=== PATIENT | male | born 1955 | race Caucasian/White ===

== ENCOUNTER → 2016-12-11 | Outpatient (CLI) | payer OTHER ==
[~2016-12-11] MED LIST: FURO1TAB62 PO; LISI-515 PO; METF1000 PO; NORV2.5T PO; ZOCO20TA PO
--- NOTE | 2016-12-11 13:51 | RADRPT ---
EXAM DATE/TIME: 12/11/2016 13:28 [facility] COMPARISON: No previous studies available for comparison. INDICATIONS : Short of breath. MEDICAL HISTORY : None. SURGICAL HISTORY : None. ENCOUNTER: Initial ACUITY: 2 weeks PAIN SCORE: 0/10 LOCATION: Bilateral chest FINDINGS: The lungs are hypoaerated. There is mild basilar airspace disease on the left. Heart and mediastinal structures are unremarkable. The right costophrenic angle appears blunted posteriorly. Displaced rib fractures are seen on the fourth, fifth and sixth ribs. There is nondisplaced fractures of the seventh and eighth ribs. CONCLUSION: Right-sided rib fractures. Poor lung aeration with basilar airspace disease on the left. Small right pleural effusion. Ru Jeffries MD on December 11, 2016 at 13:44 Board Certified Radiologist. This report was verified electronically.
--- NOTE | 2016-12-11 14:49 | RADRPT ---
EXAM DATE/TIME: 12/11/2016 12:56 [facility] COMPARISON: No previous studies available for comparison. INDICATIONS : Abdominal swelling for over a month. MEDICAL HISTORY : Hypertension. Testicular cancer. Diabetes. SURGICAL HISTORY : Left testicle removed. Abdominal lymph nodes removed. ENCOUNTER: Initial ACUITY: 1 month PAIN SCORE: 2/10 LOCATION: Abdomen. MEASUREMENTS: LIVER: 17.2 cm length COMMON DUCT: 5 mm RIGHT KIDNEY: 14.4 x 7.3 x 7.2 cm LEFT KIDNEY: 13.4 x 6.5 x 6.4 cm SPLEEN: 10.7 cm length AORTA: 2.8cm maximal FINDINGS: LIVER: A coarse heterogeneous hyperechoic texture is present throughout the liver. Nodular contour is noted. Several small cysts are identified. Moderate ascites is noted. COMMON DUCT: No intraluminal mass or stone visualized. GALLBLADDER: Gallbladder is contracted. Hyperechoic structures causing acoustic shadowing are noted in the contrac rolf gallbladder. PANCREAS: Nonvisualized RIGHT KIDNEY: No hydronephrosis, stone or mass. LEFT KIDNEY: No hydronephrosis, stone or mass. SPLEEN: No focal lesion. AORTA: Non aneurysmal. IVC: Within normal limits. CONCLUSION: Cirrhotic liver with moderate ascites. Simple hepatic cysts. Contracted gallbladder with suspected cholelithiasis. Ru Jeffries MD on December 11, 2016 at 14:29 Board Certified Radiologist. This report was verified electronically.
--- NOTE | 2016-12-11 14:50 | RADRPT ---
EXAM DATE/TIME: 12/11/2016 13:18 [facility] COMPARISON: No previous studies available for comparison. INDICATIONS : Abdominal distention. MEDICAL HISTORY : Hypertension. Left testicular cancer. Abdominal distension. SURGICAL HISTORY : Left testicle removed. Abdominal lymph nodes removed. ENCOUNTER: Initial ACUITY: 1 month PAIN SCORE: 0/10 LOCATION: Abdominal. AREA EVALUATED: Lower abdomen and pelvis. FINDINGS: Imaging of the abdomen and pelvis was performed to evaluate for ascites for possible paracentesis. Mo derate amount of ascites amenable to drainage is noted. CONCLUSION: Moderate ascites amenable to paracentesis. Ru Jeffries MD on December 11, 2016 at 14:46 Board Certified Radiologist. This report was verified electronically.
== END ==
LOC: HRAD 12:05
DX: R60.9 Edema, unspecified (principal); R41.0 Disorientation, unspecified
CPT/HCPCS: 71020; 76700; 76705

== ENCOUNTER 2016-12-13 13:11 | Emergency (ER) | payer OTHER ==
[~2016-12-13] VITALS: Ht 188 cm; Wt 139.0 kg
[2016-12-13 13:13] VITALS: BP 146/73; PULSE 107; RESP 18; TEMP 98.1; O2SAT 93
--- NOTE | 2016-12-13 13:30 | PD ---
Physical Exam Time Seen by Provider: 13:28 Narrative [address] Jose M Menon for drainage of fluid from "chest and sides." Denies chest pain. Reports SOB. Patient seen in triage. VS reviewed. Awaiting bed placement. Data Data Last Documented VS Vital Signs Date Time Temp Pulse Resp B/P Pulse Ox O2 Delivery O2 Flow Rate FiO2 12/13/16 13:13 98.1 107 18 146/73 93 Room Air [facility] Supervised Visit with TERRIE: Mona Davidson Dec 13, 2016 13:30
--- NOTE | 2016-12-13 14:35 | RADRPT ---
EXAM DATE/TIME: 12/13/2016 14:20 [facility] COMPARISON: CHEST PA & LAT, December 11, 2016, 13:28. INDICATIONS : Shortness of breath. Previous MEDICAL HISTORY : None. SURGICAL HISTORY : None. ENCOUNTER: Initial ACUITY: 2 days PAIN SCORE: 0/10 LOCATION: Bilateral chest FINDINGS: Lungs are hypoaerated but remain clear. Heart and mediastinal structures are stable. Right-sided rib fractures are again noted. CONCLUSION: No evidence of acute airspace disease, pneumothorax or significant congestion. Right-sided rib fractures. Ru Jeffries MD on December 13, 2016 at 14:31 Board Certified Radiologist. This report was verified electronically.
[2016-12-13 15:40] LABS: AUTOMATED NEUTROPHIL # 7.3 TH/MM3 (1.8-7.7); BASOPHIL % 0.2 % (0.0-2.0); EOSINOPHIL # 0.1 TH/MM3 (0-0.4); EOSINOPHIL % 1.1 % (0.0-4.0); HEMATOCRIT 49.8 % (39.0-51.0); HEMO FLAGS DIFF FINAL; LYMPH % 14.1 % (9.0-44.0); LYMPHOCYTE # 1.4 TH/MM3 (1.0-4.8); MEAN CELL VOLUME 104.2 FL (80.0-100.0); MEAN CORPUSCULAR HEMOGLOBIN 35.4 PG (27.0-34.0); MONO % 12.7 % (0.0-8.0); NEUT % 71.9 % (16.0-70.0); PLATELET COUNT 237 TH/MM3 (150-450); RED BLOOD COUNT 4.78 MIL/MM3 (4.50-5.90); RED CELL DISTRIBUTION WIDTH 13.2 % (11.6-17.2); WHITE BLOOD COUNT 10.1 TH/MM3 (4.0-11.0)
[2016-12-13 16:32] LABS: BICARBONATE 26.5 MEQ/L (21.0-32.0); POTASSIUM 4.2 MEQ/L (3.5-5.1)
--- NOTE | 2016-12-13 16:52 | PD ---
HPI Chief Complaint: Respiratory Distress Time Seen by Provider: 16:52 Travel History International Travel<30 days: No Contact w/Intl Traveler<30days: No Traveled to known affect area: No History of Present Illness HPI 61-year-old male with history of hypertension, fairly recent diagnosis of cirrhosis with associated ascites, presents to emergency department for a paracentesis. Patient states that on the he had an ultrasound that showed "fluid that needs to be drained." His attending physician Dr. Menon sent him to the emergency department for this. Patient states over the last month he has noticed swelling in his lower extremities as well as increasing girth of his abdomen and shortness of breath. He states he had been off of his antihypertensive for several months because he did not have insurance. He went to his attending and was restarted on these as well as Lasix. Patient states he has lost 5 pounds since starting the Lasix. Reports no worsening in his shortness of breath. Denies any fever or chills. No significant chest pain or tightness. Patient has no other symptoms to report. [facility] Past Medical History Diabetes: Yes Patient Takes Glucophage: Yes Hypertension: Yes Past Surgical History Other Surgery: Yes (one testicle removed) Social History Alcohol Use: Yes (quit alcohol) Tobacco Use: No Substance Use: No Allergies-Medications (Allergen,Severity, Reaction): Coded Allergies: No Known Allergies (Unverified , 12/13/16) Reported Meds & Prescriptions Reported Meds & Active Scripts Active Reported Zocor (Simvastatin) 20 Mg Tab 20 Mg PO DAILY Metformin (Metformin HCl) 1,000 Mg Tab 1,000 Mg PO BIDPC With meals Norvasc (Amlodipine Besylate) 2.5 Mg Tab 2.5 Mg PO DAILY Lasix (Furosemide) 20 Mg Tab 20 Mg PO DAILY Lisinopril 20 Mg Tab 20 Mg PO DAILY Review of Systems Except as stated in HPI: all other systems reviewed are Neg Physical Exam Narrative GENERAL: Well-nourished male patient, lying on the stretcher, in no acute distress SKIN: Focused skin assessment warm/dry. HEAD: Atraumatic. Normocephalic. EYES: Pupils equal and round. No scleral icterus. No injection or drainage. ENT: No nasal bleeding or discharge. Mucous membranes pink and moist. NECK: Trachea midline. No JVD. CARDIOVASCULAR: Tachycardic rate and rhythm. RESPIRATORY: No accessory muscle use. Diminished. Breath sounds equal bilaterally. GASTROINTESTINAL: Abdomen soft, distended. Nontender.. MUSCULOSKELETAL: No obvious deformities. No clubbing. No cyanosis. 2+ lower extremity edema that is pitting. Patient's abdominal wall also has pitting edema. NEUROLOGICAL: Awake and alert. No obvious cranial nerve deficits. Motor grossly within normal limits. Normal speech. PSYCHIATRIC: Appropriate mood and affect; insight and judgment normal. Data Data Last Documented VS Vital Signs Date Time Temp Pulse Resp B/P Pulse Ox O2 Delivery O2 Flow Rate FiO2 12/13/16 19:22 99 18 134/84 93 Room Air 12/13/16 13:13 98.1 Orders Complete Blood Count With Diff (12/13/16 13:59) Basic Metabolic Panel (Bmp) (12/13/16 13:59) Chest, Single Ap (12/13/16 13:59) Iv Access Insert/Monitor (12/13/16 13:59) Ecg Monitoring (12/13/16 13:59) Oxygen Administration (12/13/16 13:59) Oximetry (12/13/16 13:59) Hepatic Functional Panel (12/13/16 17:10) Coag Profile (12/13/16 17:14) Ct Abd/Pel W Iv Contrast(Rout) (12/13/16 ) Iohexol 350 Inj (Omnipaque 350 Inj) (12/13/16 18:23) Labs Laboratory Tests Test 12/13/16 12/13/16 15:00 17:25 White Blood Count 10.1 TH/MM3 Red Blood Count 4.78 MIL/MM3 Hemoglobin 16.9 GM/DL Hematocrit 49.8 % Mean Corpuscular Volume 104.2 FL Mean Corpuscular Hemoglobin 35.4 PG Mean Corpuscular Hemoglobin 34.0 % Concent Red Cell Distribution Width 13.2 % Platelet Count 237 TH/MM3 Mean Platelet Volume 8.1 FL Neutrophils (%) (Auto) 71.9 % Lymphocytes (%) (Auto) 14.1 % Monocytes (%) (Auto) 12.7 % Eosinophils (%) (Auto) 1.1 % Basophils (%) (Auto) 0.2 % Neutrophils # (Auto) 7.3 TH/MM3 Lymphocytes # (Auto) 1.4 TH/MM3 Monocytes # (Auto) 1.3 TH/MM3 Eosinophils # (Auto) 0.1 TH/MM3 Basophils # (Auto) 0.0 TH/MM3 CBC Comment DIFF FINAL Differential Comment Sodium Level 133 MEQ/L Potassium Level 4.2 MEQ/L Chloride Level 96 MEQ/L Carbon Dioxide Level 26.5 MEQ/L Anion Gap 11 MEQ/L Blood Urea Nitrogen 38 MG/DL Creatinine 1.25 MG/DL Estimat Glomerular Filtration 58 ML/MIN Rate Random Glucose 141 MG/DL Calcium Level 9.2 MG/DL Total Bilirubin 1.8 MG/DL Direct Bilirubin 0.9 MG/DL Indirect Bilirubin 0.9 MG/DL Aspartate Amino Transf 81 U/L (AST/SGOT) Alanine Aminotransferase 75 U/L (ALT/SGPT) Alkaline Phosphatase 201 U/L Total Protein 7.7 GM/DL Albumin 2.6 GM/DL Prothrombin Time 14.5 SEC Prothromb Time International 1.3 RATIO Ratio Activated Partial 28.7 SEC Thromboplast Time MDM Medical Decision Making Medical Screen Exam Complete: Yes Emergency Medical Condition: Yes Medical Record Reviewed: Yes Differential Diagnosis Ascites versus effusion versus liver failure versus neoplasm versus electrolyte abnormality. Narrative Course 61-year-old male presents to emergency department for a paracentesis. I contacted ultrasound department and he states that he did not have an appointment for this. Patient states he was just told to come to the emergency department. Patient does have 2+ pitting edema on his lower extremities with weeping as well as pitting of his abdominal wall. He does have a rotund, distended but nontender abdomen. He is mildly tachycardic and his oxygen saturation is maintained at 93% on room air. I discussed the patient with my attending physician. CT imaging of the abdomen will be ordered in addition to repeat lab work. Last Impressions Chest X-Ray 12/13/16 1359 Signed Impressions: Service Date/Time: November 14:20 - CONCLUSION: No evidence of acute airspace disease, pneumothorax or significant congestion. Right-sided rib fractures. Ru Jeffries MD Abdomen/Pelvis CT 12/13/16 0000 Signed Impressions: Service Date/Time: November 18:18 - CONCLUSION: 1. Cirrhosis of the liver. Vague focal hepatic lesion in the left hepatic lobe and further characterization with MRI of the abdomen with and without contrast recommended. A few other scattered subcentimeter liver hypodensities are most likely cysts. 2. Moderate ascites. 3. Patent portal vein. 4. No splenomegaly. 5. Trace effusions and mild atelectasis of both lung bases. 6. Previous retroperitoneal lymph node dissection. No lymphadenopathy demonstrated currently. 7. Right hydrocele fluid. 8. Small hiatal hernia. Hardik Terrazas MD ADDENDUM: There is cholelithiasis without evidence of cholecystitis or biliary obstruction. Hardik Terrazas MD Laboratory Tests Test 12/13/16 12/13/16 15:00 17:25 White Blood Count 10.1 TH/MM3 Red Blood Count 4.78 MIL/MM3 Hemoglobin 16.9 GM/DL Hematocrit 49.8 % Mean Corpuscular Volume 104.2 FL Mean Corpuscular Hemoglobin 35.4 PG Mean Corpuscular Hemoglobin 34.0 % Concent Red Cell Distribution Width 13.2 % Platelet Count 237 TH/MM3 Mean Platelet Volume 8.1 FL Neutrophils (%) (Auto) 71.9 % Lymphocytes (%) (Auto) 14.1 % Monocytes (%) (Auto) 12.7 % Eosinophils (%) (Auto) 1.1 % Basophils (%) (Auto) 0.2 % Neutrophils # (Auto) 7.3 TH/MM3 Lymphocytes # (Auto) 1.4 TH/MM3 Monocytes # (Auto) 1.3 TH/MM3 Eosinophils # (Auto) 0.1 TH/MM3 Basophils # (Auto) 0.0 TH/MM3 CBC Comment DIFF FINAL Differential Comment Sodium Level 133 MEQ/L Potassium Level 4.2 MEQ/L Chloride Level 96 MEQ/L Carbon Dioxide Level 26.5 MEQ/L Anion Gap 11 MEQ/L Blood Urea Nitrogen 38 MG/DL Creatinine 1.25 MG/DL Estimat Glomerular Filtration 58 ML/MIN Rate Random Glucose 141 MG/DL Calcium Level 9.2 MG/DL Total Bilirubin 1.8 MG/DL Direct Bilirubin 0.9 MG/DL Indirect Bilirubin 0.9 MG/DL Aspartate Amino Transf 81 U/L (AST/SGOT) Alanine Aminotransferase 75 U/L (ALT/SGPT) Alkaline Phosphatase 201 U/L Total Protein 7.7 GM/DL Albumin 2.6 GM/DL Prothrombin Time 14.5 SEC Prothromb Time International 1.3 RATIO Ratio Activated Partial 28.7 SEC Thromboplast Time I discussed the labs and imaging with my attending also reviewed them. I discussed the findings with the patient and informed him about the vague area on his liver that needed outpatient MRI evaluation. Patient has remained stable here. He states that he would like to go home. He is given outpatient order for paracentesis. He is given instructions on how to make appointment. He agrees to return immediately with any acute worsening symptoms. Diagnosis Primary Impression: Cirrhosis of liver Qualified Code: K74.60 - Cirrhosis of liver with ascites, unspecified hepatic cirrhosis type Additional Impressions: Ascites Qualified Code: R18.8 - Other ascites Liver lesion, left lobe Referrals: [employer] [employer] Primary Care Physician Patient Instructions: Ascites (ED), General Instructions Additional Instructions: Follow up with your primary care provider Outpatient MRI with and without contrast is recommended for further evaluation of a vague lesion identified on the left lobe of your liver Call the centralized scheduling number tomorrow to schedule outpt paracentesis Return to ED immediately with any acute worsening of symptoms Med/Other Pt SpecificInfo: No Change to Meds Disposition: 01 DISCHARGE HOME Condition: Stable oHllie Parra Dec 13, 2016 16:52
[2016-12-13] MEDS ORDERED: NORV2.5T PO (17:25)
[2016-12-13] MEDS ORDERED: LISI-515 PO (17:25)
[2016-12-13] MEDS ORDERED: METF1000 PO (17:25)
[2016-12-13] MEDS ORDERED: FURO1TAB62 PO (17:25)
[2016-12-13] MEDS ORDERED: ZOCO20TA PO (17:25)
[2016-12-13 18:04] LABS: APTT (PATIENT) 28.7 SEC (24.3-30.1); INTERNATIONAL NORMALIZED RATIO 1.3 RATIO; PROTHROMBIN TIME - PATIENT 14.5 SEC (9.8-11.6)
[2016-12-13] MEDS ORDERED: IOHEXOL 350 MG/ML 10 ML VIAL (for RAD DIAG) IV ONE (18:23)
--- NOTE | 2016-12-13 18:51 | RADRPT ---
EXAM DATE/TIME: 12/13/2016 18:18 This report includes an Addendum and supersedes previous reports for this exam. [facility] COMPARISON: US ABDOMEN - LOWER LIMITED, December 11, 2016, 13:18. US ABDOMEN - COMPLETE, December 11, 2016, 12:56. INDICATIONS : Abdominal distention with edema in legs. IV CONTRAST: 100 cc Omnipaque 350 (iohexol) IV ORAL CONTRAST: No oral contrast ingested. RADIATION DOSE: 26.96 CTDIvol (mGy) MEDICAL HISTORY : Hypertension. SURGICAL HISTORY : Orchiectomy ENCOUNTER: Initial ACUITY: 1 month PAIN SCALE: 0/10 LOCATION: abdomen TECHNIQUE: Volumetric scanning of the abdomen and pelvis was performed. Using automated exposure control and ad justment of the mA and/or kV according to patient size, radiation dose was kept as low as reasonably achievable to obtain optimal diagnostic quality images. FINDINGS: Shrunken nodular liver compatible cirrhosis noted. A vague hypodensity measuring about 26 mm in size is seen in the left hepatic lobe. There are a handful of subcentimeter hypodensities that are more di stinct and most likely cysts. No biliary distention. There is moderate diffuse ascites. Portal vein p atent, appears slightly distended. There is a recanalized umbilical vein and evidence of caput medusa . Normal spleen size. Pancreas, adrenal glands and kidneys are within normal limits. Numerous surgical clips are seen in the retroperitoneum, presumably previous lymph node dissection. No lymphadenopathy is demonstrated currently. Multiple small stones are seen dependently in the gallbladder. No ductal stone or ductal dilatation. No obstruction or acute inflammatory changes seen of the gastrointestinal tract. Small hiatal hernia. Partly seen is right hydrocele. Trace effusions and mild dependent atelectasis seen of both visualized lung bases. There are nonacute and substantially healed right rib fractures. I don't see an acute osseous abnormality. CONCLUSION: 1. Cirrhosis of the liver. Vague focal hepatic lesion in the left hepatic lobe and further characteri zation with MRI of the abdomen with and without contrast recommended. A few other scattered subcentim eter liver hypodensities are most likely cysts. 2. Moderate ascites. 3. Patent portal vein. 4. No splenomegaly. 5. Trace effusions and mild atelectasis of both lung bases. 6. Previous retroperitoneal lymph node dissection. No lymphadenopathy demonstrated currently. 7. Right hydrocele fluid. 8. Small hiatal hernia. Hardik Terrazas MD on December 13, 2016 at 18:44 Board Certified Radiologist. This report was verified electronically. ADDENDUM: There is cholelithiasis without evidence of cholecystitis or biliary obstruction. Hardik Terrazas MD on December 13, 2016 at 18:52 Board Certified Radiologist. This report was verified electronically.
[2016-12-13 19:02] LABS: INDIRECT BILIRUBIN 0.9 MG/DL (0.0-0.8); TOTAL BILIRUBIN ADULT 1.8 MG/DL (0.2-1.0)
[2016-12-13 19:22] VITALS: BP 134/84; PULSE 99; RESP 18; O2SAT 93
== END 2016-12-13 19:44 | disposition home or self-care (01) ==
LOC: NEPC 13:11
DX: K74.60 Unspecified cirrhosis of liver (principal); R18.8 Other ascites
CPT/HCPCS: 71010; 74177; 80048; 80076; 85025; 85610; 85730; 99285; Q9967

== ENCOUNTER 2016-12-18 11:52 | Inpatient (IN) | payer OTHER ==
[2016-12-18] VITALS (13 sets, daily range): BP systolic 68–115; BP diastolic 30–55; PULSE 67–84; RESP 22–34; TEMP 95.6–95.8; O2SAT 84–100
[~2016-12-18] VITALS: Ht 188 cm; Wt 150.0 kg
[2016-12-18] MEDS ORDERED: SODIUM CHLOR 0.9% 1000 ML INJ 1,000 ML IV SCH ×2 (12:26→14:05)
[2016-12-18] MEDS ORDERED: ROCURONIUM INJ 50 MG/5 ML VIAL ONE (12:28)
[2016-12-18] MEDS ORDERED: PROPOFOL 1000 MG/100 ML INJ 100 ML IV SCH ×2 (12:30→14:15)
[2016-12-18] MEDS ORDERED: ETOMIDATE 20 MG/10 ML VIAL IV PUSH ONE (12:30)
[2016-12-18] MEDS ORDERED: ROCURONIUM INJ 100 MG/10 ML VIAL IV ONE (12:30)
[2016-12-18] MEDS ORDERED: SODIUM CHLORIDE 0.9% FLUSH 5 ML FLUSH IV FLUSH PRN (12:30)
[2016-12-18] MEDS ORDERED: LACTULOSE SYRUP 20 GM/30 ML CUP OG-TUBE ONE (13:15)
[2016-12-18 13:18] LABS: AUTOMATED NEUTROPHIL # 19.9 TH/MM3 (1.8-7.7); BASOPHIL # 0.2 TH/MM3 (0-0.2); BASOPHIL % 0.6 % (0.0-2.0); EOSINOPHIL # 0.2 TH/MM3 (0-0.4); EOSINOPHIL % 0.6 % (0.0-4.0); HEMATOCRIT 35.4 % (39.0-51.0); LYMPH % 20.6 % (9.0-44.0); LYMPHOCYTE # 5.7 TH/MM3 (1.0-4.8); MEAN CELL VOLUME 115.3 FL (80.0-100.0); MEAN CORPUSCULAR HEMOGLOBIN 35.5 PG (27.0-34.0); MEAN CORPUSCULAR HGB CONC 30.8 % (32.0-36.0); MONO % 6.4 % (0.0-8.0); NEUT % 71.8 % (16.0-70.0); PLATELET COUNT 213 TH/MM3 (150-450); RED BLOOD COUNT 3.07 MIL/MM3 (4.50-5.90); RED CELL DISTRIBUTION WIDTH 14.4 % (11.6-17.2); WHITE BLOOD COUNT 27.7 TH/MM3 (4.0-11.0)
[2016-12-18 13:19] LABS: APTT (PATIENT) 39.6 SEC (24.3-30.1); INTERNATIONAL NORMALIZED RATIO 1.6 RATIO; PROTHROMBIN TIME - PATIENT 18.3 SEC (9.8-11.6)
[2016-12-18] MEDS ORDERED: PIPERACIL-TAZO 4.5 GM PREMIX 100 ML IV ONE (13:30)
[2016-12-18] MEDS ORDERED: NOREPINEPHRINE-DEXTROSE DRIP 250 ML IV SCH ×2 (13:30→16:00)
[2016-12-18] MEDS ORDERED: TERBUTALINE INJ 1 MG/ML AMP SQ PRN ×3 (13:30→19:30)
[2016-12-18] MEDS ORDERED: VANCOMYCIN INJ 1,000 MG in SODIUM CHLOR 0.9% 250 ML INJ 250 ML IV ONE (13:30)
[2016-12-18] MEDS ORDERED: SODIUM CHLOR 0.9% 1000 ML INJ 1,000 ML IV ONE ×3 (13:30→14:15)
--- NOTE | 2016-12-18 13:38 | PD ---
HPI Chief Complaint: Altered Mental Status Time Seen by Provider: 12:24 Travel History International Travel<30 days: No Contact w/Intl Traveler<30days: No Traveled to known affect area: No History of Present Illness HPI 61yo M with PMH of cirrhosis presents to the ED with c/o altered mental status that happened 30 minutes prior to arrival. states that he has been complaining of sob for a week. Pt arrived with pulse ox in the 70s on 100% nonrebreather and not responding. Pt was moving all extremities. Pt had eyes open but not responding to verbal stimuli or following commands. Pt was emergently intubated. Large amount of coffee ground emesis in mouth and airway as well as 500cc of coffee ground emesis returned when OG tube placed. PFSH Past Medical History High Cholesterol: Yes Cirrhosis: Yes Diabetes: Yes Patient Takes Glucophage: Yes Hypertension: Yes Triglycerides - High: Yes Past Surgical History Abdominal Surgery: Yes (lyphectomy from prostate cancer) Genitourinary Surgery: Yes Prostatectomy: Yes Other Surgery: Yes (one testicle removed) Social History Alcohol Use: Yes (quit alcohol) Tobacco Use: No Substance Use: No Allergies-Medications (Allergen,Severity, Reaction): Coded Allergies: No Known Allergies (Unverified , 12/18/16) Reported Meds & Prescriptions Reported Meds & Active Scripts Active Reported Zocor (Simvastatin) 20 Mg Tab 20 Mg PO DAILY Metformin (Metformin HCl) 1,000 Mg Tab 1,000 Mg PO BIDPC With meals Norvasc (Amlodipine Besylate) 2.5 Mg Tab 2.5 Mg PO DAILY Lasix (Furosemide) 20 Mg Tab 20 Mg PO DAILY Lisinopril 20 Mg Tab 20 Mg PO DAILY Review of Systems Except as stated in HPI: all other systems reviewed are Neg Physical Exam Narrative GEN: 61yo M in distress. SKIN: Warm and dry. HEAD: Normocephalic, atraumatic. EYES: Pupils 4mm and sluggishly reactive to light bilaterally. CV: S1, S2. Lungs: Breath sounds were equal but saturating at 70s on 100% nonrebreather. + Use of accessory muscles. Abd: Distended. Soft. Ext: Pt moving all extremities but not to command. NEURO: Nonverbal. Eyes open. Moving extremities but not to command or purposeful. Exam limited with altered mental status. Data Data Last Documented VS Vital Signs Date Time Temp Pulse Resp B/P Pulse Ox O2 Delivery O2 Flow Rate FiO2 12/18/16 12:20 100 12/18/16 12:09 84 22 92/55 86 Non-Rebreather 15 Orders Electrocardiogram (12/18/16:) Ammonia (12/18/16:) Complete Blood Count With Diff (12/18/16:) Comprehensive Metabolic Panel (12/18/16:) Creatine Kinase (Cpk) (12/18/16) Prothrombin Time / Inr (Pt) (12/18/16) Act Partial Throm Time (Ptt) (12/18/16:) Troponin I (12/18/16) Thyroid Stimulating Hormone (12/18/16) Urinalysis - C+S If Indicated (12/18/16:) Lactic Acid Sepsis Protocol (12/18/16:) Arterial Blood Gas (Abg) (12/18/16:) Blood Culture (12/18/16) Chest, Single Ap (12/18/16:) Blood Glucose (12/18/16:) Ecg Monitoring (12/18/16:) Iv Access Insert/Monitor (12/18/16:) Oximetry (12/18/16:) Sodium Chloride 0.9% Flush (Ns Flush) (12/18/16 12:30) Sodium Chlor 0.9% 1000 Ml Inj (Ns 1000 M (12/18/16:) Drug Screen, Random Urine (12/18/16:) Alcohol (Ethanol) (12/18/16:) Type And Screen (12/18/16:) Rocuronium Inj (Zemuron Inj) (12/18/16 12:30) Etomidate Inj (Amidate Inj) (12/18/16 12:30) Rocuronium Inj (Zemuron Inj) (12/18/16 12:28) Propofol 1000 Mg/100 Ml Inj (Diprivan 10 (12/18/16 12:30) ^ Infusion (12/18/16 12:29) RASS (12/18/16 12:29) Neurological Rass Scale ESME.Q2H (12/18/16 12:29) Urinary Catheter Insert/Apply (12/18/16 12:29) Moises-Gastric Tube Insert/Mon (12/18/16 12:29) Restraints Non-Violent ESME.Q3H (12/18/16 12:29) Lactulose Liq (Lactulose Liq) (12/18/16 13:15) Sodium Chlor 0.9% 1000 Ml Inj (Ns 1000 M (12/18/16 13:30) Vancomycin Inj (Vancomycin Inj) (12/18/16 13:30) Piperacil-Tazo 4.5 Gm Premix (Zosyn 4.5 (12/18/16 13:30) Norepinephrine-Dextrose Drip (Levophed-D (12/18/16 13:30) Terbutaline Inj (Brethine Inj) (12/18/16 13:30) Red Blood Cells (Rbc) (12/18/16 13:44) Blood Product Administration .UPON TRANSFUSION (12/18/16 13:44) Sodium Chlor 0.9% 250 Ml Inj (Ns 250 Ml (12/18/16 13:45) Admit To Inpatient (12/18/16 ) Code Status (12/18/16 14:05) Vital Signs (Adult) ESME.Q1H (12/18/16 14:05) Activity Bed Rest (12/18/16 14:05) House Fellow / Telemetry ESME.Q8H (12/18/16 14:05) Intake + Output ESME.Q8H (12/18/16 14:05) Urinary Catheter Management ESME.Q8H (12/18/16 14:05) Diet Npo (12/18/16 Dinner) Sodium Chlor 0.9% 1000 Ml Inj (Ns 1000 M (12/18/16 14:05) Fentanyl Inj (Fentanyl Inj) (12/18/16 14:15) Urine Culture (12/18/16 13:15) Albuterol-Ipratropium Neb (Duoneb Neb) (12/18/16 16:00) Albuterol Neb (Albuterol Neb) (12/18/16 14:15) Chlorhexidine 0.12% Liq (Peridex 0.12% L (12/18/16 20:00) Sputum Culture And Gram Stain (12/18/16 14:05) Resp Pulse Oximetry (12/18/16 ) Resp Ventilation- Volume (12/18/16 ) Arterial Blood Gas (Abg) (12/18/16 ) Consult Cm-Day 5 Ltac Eval (12/18/16 ) Scd Bilateral/Knee High ESME.BID (12/18/16 14:05) Kurt Bilateral/Knee High ESME.QSHIFT (12/18/16 14:05) ^ Initiate Protocol (12/18/16 14:05) Instruction (12/18/16 14:05) Misc Nursing Information (12/18/16 14:15) Chlorhexidine 2% Cloth (Chlorhexidine 2% (12/19/16 04:00) Chlorhexidine 2% Cloth (Chlorhexidine 2% (12/18/16 14:15) Mrsa Pcr Surveillance (12/18/16 14:05) Propofol 1000 Mg/100 Ml Inj (Diprivan 10 (12/18/16 14:15) Inpatient Certification (12/18/16 ) Sodium Bicarbonate 8.4% Inj (Sodium Bica (12/18/16 14:15) Admit Order (Ed Use Only) (12/18/16 14:09) Labs Laboratory Tests Test 12/18/16 12/18/16 12/18/16 12/18/16 12:35 13:15 13:49 13:50 White Blood Count 27.7 TH/MM3 Red Blood Count 3.07 MIL/MM3 Hemoglobin 10.9 GM/DL Hematocrit 35.4 % Mean Corpuscular Volume 115.3 FL Mean Corpuscular Hemoglobin 35.5 PG Mean Corpuscular Hemoglobin 30.8 % Concent Red Cell Distribution Width 14.4 % Platelet Count 213 TH/MM3 Mean Platelet Volume 8.7 FL Neutrophils (%) (Auto) 71.8 % Lymphocytes (%) (Auto) 20.6 % Monocytes (%) (Auto) 6.4 % Eosinophils (%) (Auto) 0.6 % Basophils (%) (Auto) 0.6 % Neutrophils # (Auto) 19.9 TH/MM3 Lymphocytes # (Auto) 5.7 TH/MM3 Monocytes # (Auto) 1.8 TH/MM3 Eosinophils # (Auto) 0.2 TH/MM3 Basophils # (Auto) 0.2 TH/MM3 CBC Comment AUTO DIFF Differential Total Cells 100 Counted Neutrophils % (Manual) 66 % Band Neutrophils % 12 % Lymphocytes % 13 % Monocytes % 2 % Eosinophils % 1 % Neutrophils # (Manual) 23.3 TH/MM3 Metamyelocytes 3 % Myelocytes 2 % Promyelocytes 1 % Differential Comment FINAL DIFF MANUAL Platelet Estimate NORMAL Platelet Morphology Comment NORMAL Red Cell Morphology Comment NORMAL Prothrombin Time 18.3 SEC Prothromb Time International 1.6 RATIO Ratio Activated Partial 39.6 SEC Thromboplast Time Sodium Level 139 MEQ/L Potassium Level 6.8 MEQ/L Chloride Level 101 MEQ/L Carbon Dioxide Level 7.7 MEQ/L Anion Gap 30 MEQ/L Blood Urea Nitrogen 91 MG/DL Creatinine 4.98 MG/DL Estimat Glomerular Filtration 12 ML/MIN Rate Random Glucose 82 MG/DL Lactic Acid Level 22.0 mmol/L Calcium Level 8.2 MG/DL Total Bilirubin 1.2 MG/DL Aspartate Amino Transf 153 U/L (AST/SGOT) Alanine Aminotransferase 84 U/L (ALT/SGPT) Alkaline Phosphatase 118 U/L Ammonia 578 MCMOL/L Total Creatine Kinase 147 U/L Troponin I 0.02 NG/ML Total Protein 5.4 GM/DL Albumin 1.7 GM/DL Thyroid Stimulating Hormone 6.210 uIU/ML 3rd Gen Ethyl Alcohol Level LESS THAN 3 MG/DL Blood Type A POSITIVE Antibody Screen NEGATIVE Blood Bank Comment Urine Color YELLOW Urine Turbidity HAZY Urine pH 5.5 Urine Specific [place] 1.021 Urine Protein 30 mg/dL Urine Glucose (UA) NEG mg/dL Urine Ketones NEG mg/dL Urine Occult Blood MOD Urine Nitrite NEG Urine Bilirubin NEG Urine Urobilinogen 2.0 MG/DL Urine Leukocyte Esterase LARGE Urine RBC 12 /hpf Urine WBC /hpf Urine WBC Clumps MOD Urine Squamous Epithelial <1 /hpf Cells Urine Transitional Epithelial <1 /hpf Cells Urine Bacteria FEW /hpf Urine Hyaline Casts 8 /lpf Urine Mucus FEW /lpf Urine Yeast (Budding) RARE Microscopic Urinalysis Comment CATH-CULTURE IND Urine Opiates Screen POS Urine Barbiturates Screen NEG Urine Amphetamines Screen NEG Urine Benzodiazepines Screen NEG Urine Cocaine Screen NEG Urine Cannabinoids Screen NEG Blood Gas Puncture Site RT BRACHIAL Blood Gas Patient Temperature 98.6 Blood Gas HCO3 8 mmol/L Blood Gas Base Excess -23.4 mmol/L Blood Gas Oxygen Saturation 72 % Arterial Blood pH 6.76 Arterial Blood Partial 63 mmHg Pressure CO2 Arterial Blood Partial 75 mmHG Pressure O2 Arterial Blood Oxygen Content 9.6 Vol % Arterial Blood 0.0 % Carboxyhemoglobin Arterial Blood Methemoglobin 0.6 % Blood Gas Hemoglobin 9.4 G/DL Oxygen Delivery Device VENTILATOR Blood Gas Ventilator Setting 470/22/+5/1.0 Blood Gas Inspired Oxygen 100 % Crossmatch Leukocyte-Reduced Red Blood Cells MDM Medical Decision Making Medical Screen Exam Complete: Yes Emergency Medical Condition: Yes Differential Diagnosis Esophageal variceal bleed vs. hepatic encephalopathy vs. ICH Narrative Course 61yo M with altered mental status. Pt was severely hypoxic and not responding to verbal stimuli. Pt was emergently intubated in the ED. Large amounts of coffee ground fluid in mouth seen during intubation. Glucose was 86. 500cc of coffee ground emesis came out after OG tube insertion. +Hemaprompt. Ordered 4 units of RBC and ordered to transfuse 2 units. Pt was initially placed on propofol after intubation but blood pressure dropped so propofol was turned off. Pt is receiving NS IVF x2 and bp was still low so started pt on norepinephrine in 18gauge peripheral IV in antecubital region. Pt has 2 18 gauge IVs in bilateral AC. Labs reviewed, leukocytosis at 27.7. H/H 10.9/ 35.4. PT 18.3, INR 1.6, PTT 39.6. Creatinine 4.98. Discussed with Dr. Echevarria from GI who recommended adding FFP. Lactic acid elevated at 22 which can be from sepsis or GI bleed. Ammonia 578, ordered lactulose. K: 6.8, given sodium bicarb, calcium gluconate, insulin/dextrose and albuterol. ABG showed metabolic acidosis with pH 6.76. HCO3 8. Sat 72%. Pt given additional sodium bicarb. Pt empirically given vancomycin and zosyn. UA positive for leukocyte. CXR showed left basilar consolidation. Likely aspiration pneumonia. Adequate placement of ET tube. Discussed with Dr. Dye and accepted to his service. Critical Care Narrative Aggregate critical care time was 90 minutes. Time to perform other separately billable procedures was not included in the critical care time. My time did not include minutes spent treating any other patients simultaneously or on activities that did not directly contribute to the patient's treatment. The services I provided to this patient were to treat and/or prevent clinically significant deterioration that could result in: cardiovascular collapse or . I provided critical care services requiring my management, as noted below: Chart data review, documentation time, medication orders and management, vital sign assessments/reviewing monitor data, ordering and reviewing lab tests, ordering and interpreting/reviewing x-rays and diagnostic studies, care of the patient and discussion of the patient with the admitting physicians. Sepsis Criteria SIRS Criteria (2 or more): RR > 20 or PaCO2 < 32, WBC > 06675, < 4000 or > 10 % bands Sepsis Criteria (SIRS+source): Infect source susp/known Severe Sepsis (+one): Organ Dysfunction, Hypotension, Hypoperfusion, Lactate >2 , Acute Oliguria/Renal Failure Septic Shock Criteria: Unresponsive to 30ml/kg fluid bolus, Lactic acid >=4 Multiple Organ Dysfunction Syn: Evidence -2 organs failing Criteria Outcome: Meets septic shock criteria Diagnosis Primary Impression: Sepsis with multi-organ dysfunction Additional Impressions: Hyperkalemia Acute hepatic encephalopathy Acute respiratory failure Qualified Code: J96.01 - Acute respiratory failure with hypoxia Admitting Information Admitting Physician Requests: Admit Zara Webb DO Dec 18, 2016 13:38
--- NOTE | 2016-12-18 13:44 | RADRPT ---
EXAM DATE/TIME: 12/18/2016 13:04 [facility] COMPARISON: CHEST SINGLE AP, December 13, 2016, 14:20. INDICATIONS : Evaluate ET tube placement. MEDICAL HISTORY : Hypertension. Hypercholesterolemia. Carcinoma, prostatic. SURGICAL HISTORY : None. ENCOUNTER: Initial ACUITY: 1 day PAIN SCORE: Non-responsive. LOCATION: Bilateral chest FINDINGS: A single view of the chest demonstrates cardiomegaly left basilar density. Endotracheal tube 4 cm abo ve amanda. Nasogastric tube with tip in stomach. Osseous structures are intact. CONCLUSION: 1. Left basilar consolidation. 2. Cardiomegaly. 3. Adequate placement of endotracheal tube. Joel Mitchell MD on December 18, 2016 at 13:39 Board Certified Radiologist. This report was verified electronically.
[2016-12-18] MEDS ORDERED: SODIUM CHLOR 0.9% 250 ML INJ 250 ML IV ONE ×3 (13:45→15:30)
[2016-12-18 13:52] LABS: HEMO FLAGS AUTO DIFF
[2016-12-18 14:02] LABS: ALKALINE PHOSPHATASE 118 U/L (45-117); ALT (GPT) 84 U/L (12-78); ANION GAP 30 MEQ/L (5-15); AST (GOT) 153 U/L (15-37); BICARBONATE 7.7 MEQ/L (21.0-32.0); BLOOD UREA NITROGEN 91 MG/DL (7-18); CHLORIDE 101 MEQ/L (98-107); CREATINE KINASE 147 U/L (39-308); GLOMERULAR FILTRATION RATE 12 ML/MIN (>89); SODIUM (NA) 139 MEQ/L (136-145); TOTAL BILIRUBIN ADULT 1.2 MG/DL (0.2-1.0)
[2016-12-18 14:02] LABS: BLOOD GAS BASE EXCESS -23.4 mmol/L (-2-2); BLOOD GAS HCO3 8 mmol/L (22-26); BLOOD GAS METHEMOGLOBIN 0.6 % (0-2); BLOOD GAS O2 HGB SATURATION 72 % (90-100); BLOOD GAS OXYGEN CONTENT 9.6 Vol % (12.0-20.0); BLOOD GAS PCO2 63 mmHg (38-42); BLOOD GAS PO2 75 mmHG (61-120); BLOOD GAS TOTAL HGB 9.4 G/DL (12.0-16.0); TEMP CORR TO 98.6
[2016-12-18 14:03] LABS: CRITICAL VALUE YES; DRAW SITE RT BRACHIAL; FIO2 100 %; OXYGEN DEVICE VENTILATOR
[2016-12-18 14:04] LABS: NUMBER OF ARTERIAL PUNCTURES 1; STAT YES
[2016-12-18 14:07] LABS: BACTERIA, URINE FEW /hpf; BLOOD, URINE MOD (NEG); COMMENT (UR) CATH-CULTURE IND; CULTURE IF INDICATED CATH CULTURE IND; GLUCOSE,URINE NEG (NEG); HYALINE CAST, URINE 8 /lpf (RARE); KETONE, URINE NEG (NEG); MUCUS URINE FEW /lpf (OCC); NITRITE,URINE NEG (NEG); PH, URINE 5.5 (5.0-8.5); SQUAMOUS EPITHELIAL CELL URINE <1 /hpf (0-5); TRANSITIONAL EPI CELLS, URINE <1 /hpf; URINE COLOR YELLOW (YELLW/STRAW)
[2016-12-18 14:12] LABS: AMPHETAMINE, URINE NEG (NEG); BARBITURATES, URINE NEG (NEG); COCAINE, URINE NEG (NEG)
[2016-12-18] MEDS ORDERED: CHLORHEXIDINE GLUCONATE 2 % 1 PACK (2 CLOTHS) TOP PRN (14:15)
[2016-12-18] MEDS ORDERED: SODIUM BICARBONATE 8.4% INJ 50 MEQ/50 ML SYR IV PUSH ONE (14:15)
[2016-12-18] MEDS ORDERED: RESP: ALBUTEROL 2.5 MG/3 ML NEB (PRN) INH (14:15)
[2016-12-18] MEDS ORDERED: Vancomycin Consult Pharmacy 1 EA OTHER SCH (14:15)
[2016-12-18] MEDS ORDERED: PIPERACIL-TAZO 4.5 GM PREMIX 100 ML IV SCH (14:15)
[2016-12-18] MEDS ORDERED: OCTREOTIDE INJ 50 MCG/ML AMP IV ONE (14:15)
[2016-12-18] MEDS ORDERED: MISCELLANEOUS NURSING INFORMATION XX SCH (14:15)
[2016-12-18 14:22] LABS: POTASSIUM 6.8 MEQ/L (3.5-5.1)
[2016-12-18] MEDS ORDERED: SODIUM BICARBONATE 8.4% INJ 50 MEQ/50 ML SYR ONE (14:27)
[2016-12-18] MEDS ORDERED: SODIUM POLYSTYRENE SULFONATE SUSP 15 GM/60 ML CUP PO ONE (14:30)
[2016-12-18] MEDS ORDERED: INSULIN HUMAN REGULAR 1,000 UNITS/10 ML VIAL IV PUSH ONE (14:30)
[2016-12-18] MEDS ORDERED: SODIUM BICARBONATE 8.4% SOLN 50 MEQ/50 ML VIAL SLOW IVP ONE (14:30)
[2016-12-18] MEDS ORDERED: SODIUM POLYSTYRENE SULFONATE SUSP 15 GM/60 ML CUP OG-TUBE ONE (14:30)
[2016-12-18] MEDS ORDERED: CALCIUM GLUCONATE 10% 1 GM/10 ML VIAL SLOW IVP ONE (14:30)
[2016-12-18] MEDS ORDERED: RESP: ALBUTEROL CONC 2.5 MG/0.5 ML NEB INH ONE (14:30)
[2016-12-18] MEDS ORDERED: SODIUM BICARBONATE 8.4% SOLN 50 MEQ/50 ML VIAL IV PUSH ONE (14:30)
[2016-12-18] MEDS ORDERED: DEXTROSE 50% IN WATER 50 ML VIAL(D50) IV PUSH ONE (14:30)
--- NOTE | 2016-12-18 14:33 | HHI.HP ---
[facility] Service Critical Care Medicine Primary Care Physician Non-Staff Admission Diagnosis GI bleed, hepatic encephalopathy, septic shock Diagnosis: (1) Septic shock Diagnosis: Principal (2) Sepsis with multi-organ dysfunction Diagnosis: Principal (3) Acute respiratory failure Diagnosis: Principal (4) Acute hepatic encephalopathy Diagnosis: Principal (5) Liver failure, acute Diagnosis: Principal (6) Acute kidney failure Diagnosis: Principal (7) Hyperkalemia Diagnosis: Principal (8) Hyperammonemia Diagnosis: Principal (9) UGIB (upper gastrointestinal bleed) Diagnosis: Principal (10) Metabolic acidemia Diagnosis: Principal (11) Lactic acidemia Diagnosis: Principal (12) Ascites Diagnosis: Principal (13) Cirrhosis of liver Diagnosis: Secondary Chief Complaint: Acute hypoxemic respiratory failure Lactic acidemia Travel History International Travel<30 Days: No Contact w/Intl Traveler <30 Da: No Traveled to Known Affected Are: No Sepsis Criteria SIRS Criteria (2 or more): Temp > 100.9 or < 96.8, RR > 20 or PaCO2 < 32, WBC > 13807, < 4000 or > 10% bands Sepsis Criteria (SIRS+source): Infect source susp/known Severe Sepsis (+one): Organ Dysfunction, Hypotension, Hypoperfusion, Lactate >2 , Acute Oliguria/Renal Failure Septic Shock Criteria: Unresponsive to 30ml/kg fluid bolus, Lactic acid >=4 Multiple Organ Dysfunction Syn: Evidence -2 organs failing Criteria Outcome: Meets septic shock criteria, Meets multiple organ dys. criteria History of Present Illness Patient is a 61-year-old male with a recent diagnosis of liver cirrhosis made approximately 2 weeks ago, history of type 2 diabetes, hypertension, dyslipidemia who presented to the emergency department with altered mentation, severe shortness of breath and hypoxia. stated that he has been complaining of shortness of breath for more than a week. In the emergency department patient had oxygen saturation in 70s on 100% nonrebreather and was unresponsive but with eyes open, moving all extremities intermittently. Pt was emergently intubated. There was a large amount of coffee-ground emesis in mouth and airway, after NG tube placement additional 500cc of coffee ground emesis. Patient was profoundly hypotensive did not respond to 2 L IV fluid boluses. Patient was started on Levophed and 4 units of RBC and ordered to transfuse 2 units. Initial labs were grossly abnormal WBC count was 27.7 with markedly left shift, INR 1.6, lactic acid was highly elevated at 22. His Ammonia was 578, patient was also in acute renal failure with potassium of K6.8. Received sodium bicarb, calcium gluconate, insulin/dextrose and albuterol in the ED. ABG showed severe metabolic acidosis with pH 6.76. HCO3 8. Sat 72%, BE -23. Pt empirically given vancomycin and zosyn in ED. CXR showed left basilar consolidation. Patient continued to get profoundly hypotensive and was emergently transferred to ICU. I was unable to get any imaging studies done including CT of the head chest and abdomen pelvis due to severe hemodynamic instability. Patient also had been placed on IV Protonix infusion and Sandostatin infusion. He had an abnormal CT scan abdomen and pelvis on 12/13/16 which revealed Cirrhosis of the liver, focal hepatic lesion in the left hepatic lobe, moderate ascites and cholelithiasis without evidence of cholecystitis or biliary obstruction. At that time patient refused to get admitted and went home, outpatient order for paracentesis was given I evaluated the patient in the ICU. He was profoundly hypotensive on Levophed 20 mcg/m. Stephane-Synephrine was started, I will also order vasopressin. Blood and urine cultures and sputum cultures ordered. Patient received vancomycin in the ED Zosyn emergently ordered and I called pharmacy personally. I proceeded with a central line placement at the left subclavian region and a right femoral central line. Patient received additional 2 L normal saline boluses and multiple bicarbonate infusions. With maximum hyperventilation I was unable to correct his acidosis. I discussed with Dr. Mantilla and got a stat nephrology consult, patient will need emergency dialysis to correct his acidemia and hyperkalemia. I also placed a right IJ Vas-Cath. I also performed a large volume paracentesis to assist with ventilation-6.5 L of slightly cloudy yellow fluid was removed Dr. Echevarria from GI performed an emergency EGD-there are multiple grade 4 varices with evidence of recent bleed but no active bleeding, banding performed Review of Systems ROS Limitations: Intubated, Altered Mental Status Past Family Social History Allergies: Coded Allergies: No Known Allergies (Unverified , 12/18/16) Past Medical History Liver cirrhosis, diagnosed about 2 weeks ago Ascites Left hepatic lobe lesion on CT scan about a week ago Cholelithiasis Hyperlipidemia DM HTN Hypertriglyceridemia Testicular cancer- 13 years ago Past Surgical History Lymph node resection Prostatectomy Testicle removed for cancer Past Surgical History Prostatectomy Testicle removed for cancer Reported Medications Zocor (Simvastatin) 20 Mg Tab 20 Mg PO DAILY Metformin (Metformin HCl) 1,000 Mg Tab 1,000 Mg PO BIDPC Norvasc (Amlodipine Besylate) 2.5 Mg Tab 2.5 Mg PO DAILY Lasix (Furosemide) 20 Mg Tab 20 Mg PO DAILY Lisinopril 20 Mg Tab 20 Mg PO DAILY Active Ordered Medications Reviewed Family History Reviewed Social History Drinks about 2 beers daily, quit about 2 weeks ago No smoking Physical Exam Vital Signs Vital Signs Date Time Temp Pulse Resp B/P Pulse Ox O2 Delivery O2 Flow Rate FiO2 12/18/16 12:09 84 22 92/55 86 Non-Rebreather 15 12/18/16 11:45 86 12/18/16 11:45 89 100 Physical Exam GENERAL: Well-nourished male patient, lying on ICU but acutely critically ill in profound shock SKIN: warm/dry. HEAD: Atraumatic. Normocephalic. EYES: Pupils equal and round, 5 mm briskly reactive. No scleral icterus. Anemic ENT: Orotracheally intubated. Mucous membranes dry. NECK: Trachea midline. No JVD. CARDIOVASCULAR: Sinus rhythm profoundly hypotensive now on 3 pressors. Bedside echo shows LVEF 40%, dilated ventricles. ? RV dilation. RESPIRATORY: Breath sounds equal bilaterally, diminished at the bases. Bibasilar crackles GASTROINTESTINAL: Abdomen is distended nontender. Large amount of ascites on bedside ultrasound MUSCULOSKELETAL: 1+ lower extremity edema that is pitting. Patient's abdominal wall also has pitting edema. NEUROLOGICAL: Intubated comatose. No withdrawal to painful stimuli. Pupils are 6 mm briskly reactive Laboratory Laboratory Tests Test 12/18/16 12/18/16 12/18/16 12/18/16 12:35 13:15 13:49 13:50 White Blood Count 27.7 Red Blood Count 3.07 Hemoglobin 10.9 Hematocrit 35.4 Mean Corpuscular Volume 115.3 Mean Corpuscular Hemoglobin 35.5 Mean Corpuscular Hemoglobin 30.8 Concent Red Cell Distribution Width 14.4 Platelet Count 213 Mean Platelet Volume 8.7 Neutrophils (%) (Auto) 71.8 Lymphocytes (%) (Auto) 20.6 Monocytes (%) (Auto) 6.4 Eosinophils (%) (Auto) 0.6 Basophils (%) (Auto) 0.6 Neutrophils # (Auto) 19.9 Lymphocytes # (Auto) 5.7 Monocytes # (Auto) 1.8 Eosinophils # (Auto) 0.2 Basophils # (Auto) 0.2 CBC Comment AUTO DIFF Prothrombin Time 18.3 Prothromb Time International 1.6 Ratio Activated Partial 39.6 Thromboplast Time Sodium Level 139 Potassium Level 6.8 Chloride Level 101 Carbon Dioxide Level 7.7 Anion Gap 30 Blood Urea Nitrogen 91 Creatinine 4.98 Estimat Glomerular Filtration 12 Rate Random Glucose 82 Lactic Acid Level 22.0 Calcium Level 8.2 Total Bilirubin 1.2 Aspartate Amino Transf 153 (AST/SGOT) Alanine Aminotransferase 84 (ALT/SGPT) Alkaline Phosphatase 118 Ammonia 578 Total Creatine Kinase 147 Troponin I 0.02 Total Protein 5.4 Albumin 1.7 Thyroid Stimulating Hormone 6.210 3rd Gen Ethyl Alcohol Level LESS THAN 3 Blood Type A POSITIVE Antibody Screen NEGATIVE Blood Bank Comment Urine Color YELLOW Urine Turbidity HAZY Urine pH 5.5 Urine Specific [place] 1.021 Urine Protein 30 Urine Glucose (UA) NEG Urine Ketones NEG Urine Occult Blood MOD Urine Nitrite NEG Urine Bilirubin NEG Urine Urobilinogen 2.0 Urine Leukocyte Esterase LARGE Urine RBC 12 Urine WBC Urine WBC Clumps MOD Urine Squamous Epithelial <1 Cells Urine Transitional Epithelial <1 Cells Urine Bacteria FEW Urine Hyaline Casts 8 Urine Mucus FEW Urine Yeast (Budding) RARE Microscopic Urinalysis Comment CATH-CULTURE IND Urine Opiates Screen POS Urine Barbiturates Screen NEG Urine Amphetamines Screen NEG Urine Benzodiazepines Screen NEG Urine Cocaine Screen NEG Urine Cannabinoids Screen NEG Blood Gas Puncture Site RT BRACHIAL Blood Gas Patient Temperature 98.6 Blood Gas HCO3 8 Blood Gas Base Excess -23.4 Blood Gas Oxygen Saturation 72 Arterial Blood pH 6.76 Arterial Blood Partial 63 Pressure CO2 Arterial Blood Partial 75 Pressure O2 Arterial Blood Oxygen Content 9.6 Arterial Blood 0.0 Carboxyhemoglobin Arterial Blood Methemoglobin 0.6 Blood Gas Hemoglobin 9.4 Oxygen Delivery Device VENTILATOR Blood Gas Ventilator Setting 470/22/+5/1.0 Blood Gas Inspired Oxygen 100 Crossmatch Leukocyte-Reduced Red Blood Cells Date/Time Procedure Status Source Growth 12/18/16 13:15 Urine Culture Received Urine Catheterized Urine Pending 12/18/16 12:40 Aerobic Blood Culture Received Blood Peripheral Pending 12/18/16 12:40 Anaerobic Blood Culture Received Blood Peripheral Pending Result Diagram: 12/18/16 1235 12/18/16 1235 Imaging Chest x-ray shows left lower lobe infiltrate Septic Shock Reassessment Heart: Regular rate and rhythm Lungs: Course Skin: Cold Peripheral Pulses: Weak Right Radial Weak Left Radial Capillary Refill: <2 seconds Assessment and Plan Assessment and Plan NEURO: Acute hepatic encephalopathy Severe hyperammonemia -Patient at this time is not needing any sedation for ventilator synchrony -Started on lactulose and rifaximin -Monitor serial ammonia levels -CT of the head once patient is slightly more stable RESP: Acute hypoxemic respiratory failure Left lower lobe pneumonia Severe metabolic acidosis - Intubated in the emergency department for severe hypoxemic respiratory failure - ACV RR 26, TV 650 PEEP 12 FiO2 100% - DuoNeb every 4 hours and when necessary - Ventilator bundle - CT of the chest once clinically more stable CV: Septic and hypovolemic shock Severe lactic acidosis - Levophed and vasopressin to keep map above 60-65 - Normal saline IV fluid 4 L boluses followed by bicarbonate infusion at 150 mL per hour - Check bedside echo, check cardiac enzymes - IV albumin 50 g now and 25 g every 8 hours - Stress dose steroids GI: Upper GI bleed Liver cirrhosis Probable left liver lobe mass Ascites - Patient is receiving 2 units of PRBC and 1 unit of FFP - GI consulted for endoscopy EGD today - Currently receiving Sandostatin and Protonix infusions - Check AFP, further imaging studies per GI - Bedside US shows large ascites-plan for paracentesis /Endo: Acute kidney failure Hyperkalemia Type 2 diabetes - Monitor renal function closely. Noble catheter in place with no urine output - Hyperkalemia medically treated with IV calcium gluconate, multiple amps of bicarbonate, insulin IV followed by D50, DuoNeb and Kayexalate also ordered - Repeat potassium is 6.5 and patient is not making any urine - Dr. Mantilla consulted for emergency hemodialysis - NovoLog sliding scale ID: Septic shock LL pneumonia Probable SBP - Source of sepsis remains unclear go pneumonia and spontaneous pectoral peritonitis seems most likely etiology - IV vancomycin and Zosyn pharmacy to dose adjust - Follow-up on blood urine and sputum cultures and ascitic fluid cultures. - CT chest abdomen pelvis once clinically more stable HEME: Anemia/GI bleed Leukocytosis - Monitor CBC, CMP, coags - Upper GI bleed with hypotension transfuse 2 units PRBC empirically - 1 unit FFP PROPH: - Bilateral lower extremity SCDs. IV Protonix gtt. chemical DVT prophylaxis is contraindicated at this time LINES: - Left subclavian central line and right femoral arterial line placed CC time 132 min excluding procedural time At this time patient remains extremely critically ill due to multiorgan failure. Patient edition severe septic shock complicated with acute respiratory failure, acute encephalopathy, acute renal failure, hyperkalemia, and upper GI bleed. I have updated and explained to her Code Status Full Discussed Condition With Leobardo Webb (ER), Dr. Echevarria (GI) Problem Qualifiers (1) Acute respiratory failure: Qualified Code: J96.01 - Acute respiratory failure with hypoxia (2) Liver failure, acute: Qualified Code: K72.01 - Acute liver failure with hepatic coma (3) Acute kidney failure: Qualified Code: N17.9 - Acute renal failure, unspecified acute renal failure type (4) Cirrhosis of liver: Lev Dye MD Dec 18, 2016 14:33 failure. Patient edition severe septic shock complicated with acute respiratory failure, acute encephalopathy, acute renal failure, hyperkalemia, and upper GI bleed. I have updated and explained to her Code Status Full Discussed Condition With Leobardo Webb (ER), Dr. Echevarria (GI) Problem Qualifiers (1) Acute respiratory failure: Qualified Code: J96.01 - Acute respiratory failure with hypoxia (2) Liver failure, acute: Qualified Code: K72.01 - Acute liver failure with hepatic coma (3) Acute kidney failure: Qualified Code: N17.9 - Acute renal failure, unspecified acute renal failure type Lve Dye MD Dec 18, 2016 14:33
[2016-12-18 14:34] LABS: BANDS 12 % (0-6); EOSINOPHILS 1 % (0-4); METAMYELOCYTES 3 % (0-1); MYELOCYTES 2 % (0-0); NEUTROPHIL # MANUAL DIFF 23.3 TH/MM3 (1.8-7.7); POLYS (SEG NEUTROPHILS) 66 % (16-70); PROMYELOCYTES 1 % (0-0); WBC DIFF SAMPLE 100
[2016-12-18 14:35] LABS: PLATELET ESTIMATE SMEAR NORMAL (NORMAL); PLATELET MORPHOLOGY NORMAL (NORMAL); SCAN/DIFF FINAL DIFF MANUAL
[2016-12-18 14:45] LABS: LACTIC ACID GHOST NOT REPORTABLE
[2016-12-18] MEDS ORDERED: SODIUM BICARBONATE 8.4% INJ 50 ML ONE (14:48)
[2016-12-18] MEDS ORDERED: ALBUMIN HUMAN 25% 25 GM/100 ML BAGP IV SCH (15:00)
[2016-12-18] MEDS ORDERED: RIFAXIMIN 550 MG TAB PO SCH (15:00)
--- NOTE | 2016-12-18 15:03 | PD.CONS ---
HPI History of Present Illness This is a 61 year old male who was recently diagnosed with liver cirrhosis who presented to the ER for evaluation of altered mental status. According to the records, he had been complaining of shortness of breath to his for about a week. In the ER, he was found to be hypoxic and unresponsive. He was emergently intubated and placed on mechanical ventilation and vomited a large amount of coffee ground emesis and had 500cc of coffee ground emesis suctioned once oral gastric tube was placed. According to the EMR, he was sent to the ER on 12/13/16 for drainage of fluid from "chest and sides." He had an abnormal CT scan abdomen and pelvis at that time on (12/13/16) which revealed 1. Cirrhosis of the liver. Vague focal hepatic lesion in the left hepatic lobe and further characterization with MRI of the abdomen with and without contrast recommended. A few other scattered subcentimeter liver hypodensities are most likely cysts. 2. Moderate ascites. 3. Patent portal vein. 4. No splenomegaly. 5. Trace effusions and mild atelectasis of both lung bases. 6. Previous retroperitoneal lymph node dissection. No lymphadenopathy demonstrated currently. 7. Right hydrocele fluid. 8. Small hiatal hernia. ADDENDUM: There is cholelithiasis without evidence of cholecystitis or biliary obstruction. His labs and imaging were discussed and the patient wanted to go home. He was given an outpatient order for paracentesis and instructed to follow up with primary for MRI evaluation of hepatic lesion. He was then brought to the ER today for altered mental status. He is currently unresponsive, intubated, on the mechanical ventilator and not able to provide any history. The history has therefore been obtained from the EMR. He was going to get a CT Scan of his abdomen and pelvis , but had worsening hypotension with a B/P of 68/37 on Levophed 20mcg. He was therefore sent straight to the intensive care unit. Octreotide and Protonix Gtt has been ordered. 4 units of PRBC has been ordered, but is not ready yet. The storeroom attendant met the patient on arrival to floor and inserted a central and arterial line. His Levophed was increased and he was started on vasopressin and given albumin. His blood pressure is not with systolic 120's. PRBC has been ordered, but awaiting blood check. Spoke to his Renetta Sharma. She reports that he was diagnosed with liver cirrhosis 2 weeks ago. She states that she was not told the etiology. She reports that he was never a heavy drinker, usually 2 drinks per day, but stopped completely 1 week ago. She denies any history known hepatitis or liver disease in patient or family members prior to him being diagnosed with liver cirrhosis a few weeks ago. She denies any known history of peptic ulcer disease or gastrointestinal bleeding. She reports that she did give him one aleve last night to help him sleep, but that he does not use these on a regular basis. Discussed with EGD with possible band ligation- procedure, risks, and benefits and she would like to proceed. PFSH Past Medical History Liver cirrhosis Ascites Left hepatic lobe lesion on recent imaging Right hydrocele Small hiatal hernia Hx retroperitoneal lymph node dissection Cholelithiasis Hyperlipidemia DM HTN Hypertriglyceridemia Testicular cancer- 13 years ago Past Surgical History Lymph node resection Prostatectomy Testicle removed for cancer Coded Allergies: No Known Allergies (Unverified , 12/18/16) Medications Allergies Coded Allergies Type Severity Reaction Last Updated Verified No Known Allergies 12/18/16 No Active Scripts Medications Dose Route/Sig Days Date Category Dose Instructions Zocor (Simvastatin) 20 Mg Tab 20 Mg PO DAILY 12/13/16 Reported Metformin (Metformin HCl) 1,000 Mg Tab 1,000 Mg PO BIDPC 12/13/16 Reported With meals Norvasc (Amlodipine Besylate) 2.5 Mg Tab 2.5 Mg PO DAILY 12/13/16 Reported Lasix (Furosemide) 20 Mg Tab 20 Mg PO DAILY 12/13/16 Reported Lisinopril 20 Mg Tab 20 Mg PO DAILY 12/13/16 Reported Family History denies any known history of liver disease. Mother had breast cancer. Social History Does not smoke. states that he was drinking 2 beers per day up until 1 week ago when he quit completely. She states that he was never a heavy drinker Review of Systems ROS Unable to obtain- hematemesis with maroon stool per nurse GI Exam Vitals I&O Vital Signs Date Time Temp Pulse Resp B/P Pulse Ox O2 Delivery O2 Flow Rate FiO2 12/18/16 14:51 92 100 12/18/16 12:09 84 22 92/55 86 Non-Rebreather 15 12/18/16 11:45 86 12/18/16 11:45 89 100 Imaging Last Impressions Chest X-Ray 12/18/16 1226 Signed Impressions: Service Date/Time: Sunday, December 18, 2016 13:04 - CONCLUSION: 1. Left basilar consolidation. 2. Cardiomegaly. 3. Adequate placement of endotracheal tube. Joel Mitchell MD Laboratory Test 12/18/16 12/18/16 12/18/16 12/18/16 12:35 13:15 13:49 13:50 White Blood Count 27.7 TH/MM3 Red Blood Count 3.07 MIL/MM3 Hemoglobin 10.9 GM/DL Hematocrit 35.4 % Mean Corpuscular Volume 115.3 FL Mean Corpuscular Hemoglobin 35.5 PG Mean Corpuscular Hemoglobin 30.8 % Concent Red Cell Distribution Width 14.4 % Platelet Count 213 TH/MM3 Mean Platelet Volume 8.7 FL Neutrophils (%) (Auto) 71.8 % Lymphocytes (%) (Auto) 20.6 % Monocytes (%) (Auto) 6.4 % Eosinophils (%) (Auto) 0.6 % Basophils (%) (Auto) 0.6 % Neutrophils # (Auto) 19.9 TH/MM3 Lymphocytes # (Auto) 5.7 TH/MM3 Monocytes # (Auto) 1.8 TH/MM3 Eosinophils # (Auto) 0.2 TH/MM3 Basophils # (Auto) 0.2 TH/MM3 CBC Comment AUTO DIFF Differential Total Cells 100 Counted Neutrophils % (Manual) 66 % Band Neutrophils % 12 % Lymphocytes % 13 % Monocytes % 2 % Eosinophils % 1 % Neutrophils # (Manual) 23.3 TH/MM3 Metamyelocytes 3 % Myelocytes 2 % Promyelocytes 1 % Differential Comment FINAL DIFF MANUAL Platelet Estimate NORMAL Platelet Morphology Comment NORMAL Red Cell Morphology Comment NORMAL Prothrombin Time 18.3 SEC Prothromb Time International 1.6 RATIO Ratio Activated Partial 39.6 SEC Thromboplast Time Sodium Level 139 MEQ/L Potassium Level 6.8 MEQ/L Chloride Level 101 MEQ/L Carbon Dioxide Level 7.7 MEQ/L Anion Gap 30 MEQ/L Blood Urea Nitrogen 91 MG/DL Creatinine 4.98 MG/DL Estimat Glomerular Filtration 12 ML/MIN Rate Random Glucose 82 MG/DL Lactic Acid Level 22.0 mmol/L Calcium Level 8.2 MG/DL Total Bilirubin 1.2 MG/DL Aspartate Amino Transf 153 U/L (AST/SGOT) Alanine Aminotransferase 84 U/L (ALT/SGPT) Alkaline Phosphatase 118 U/L Ammonia 578 MCMOL/L Total Creatine Kinase 147 U/L Troponin I 0.02 NG/ML Total Protein 5.4 GM/DL Albumin 1.7 GM/DL Thyroid Stimulating Hormone 6.210 uIU/ML 3rd Gen Ethyl Alcohol Level LESS THAN 3 MG/DL Blood Type A POSITIVE Antibody Screen NEGATIVE Blood Bank Comment Urine Color YELLOW Urine Turbidity HAZY Urine pH 5.5 Urine Specific [place] 1.021 Urine Protein 30 mg/dL Urine Glucose (UA) NEG mg/dL Urine Ketones NEG mg/dL Urine Occult Blood MOD Urine Nitrite NEG Urine Bilirubin NEG Urine Urobilinogen 2.0 MG/DL Urine Leukocyte Esterase LARGE Urine RBC 12 /hpf Urine WBC /hpf Urine WBC Clumps MOD Urine Squamous Epithelial <1 /hpf Cells Urine Transitional Epithelial <1 /hpf Cells Urine Bacteria FEW /hpf Urine Hyaline Casts 8 /lpf Urine Mucus FEW /lpf Urine Yeast (Budding) RARE Microscopic Urinalysis Comment CATH-CULTURE IND Urine Opiates Screen POS Urine Barbiturates Screen NEG Urine Amphetamines Screen NEG Urine Benzodiazepines Screen NEG Urine Cocaine Screen NEG Urine Cannabinoids Screen NEG Blood Gas Puncture Site RT BRACHIAL Blood Gas Patient Temperature 98.6 Blood Gas HCO3 8 mmol/L Blood Gas Base Excess -23.4 mmol/L Blood Gas Oxygen Saturation 72 % Arterial Blood pH 6.76 Arterial Blood Partial 63 mmHg Pressure CO2 Arterial Blood Partial 75 mmHG Pressure O2 Arterial Blood Oxygen Content 9.6 Vol % Arterial Blood 0.0 % Carboxyhemoglobin Arterial Blood Methemoglobin 0.6 % Blood Gas Hemoglobin 9.4 G/DL Oxygen Delivery Device VENTILATOR Blood Gas Ventilator Setting 470/22/+5/1.0 Blood Gas Inspired Oxygen 100 % Crossmatch Leukocyte-Reduced Red Blood Cells Date/Time Procedure Status Source Growth 12/18/16 13:15 Urine Culture Received Urine Catheterized Urine Pending 12/18/16 12:40 Aerobic Blood Culture Received Blood Peripheral Pending 12/18/16 12:40 Anaerobic Blood Culture Received Blood Peripheral Pending Physical Examination GEN: Critically ill patient. CHEST: Resp shallow/even, OETT to vent. Diminished breath sounds. CARDIAC: RRR, hypotensive on vasopressors ABDOMEN: Soft, distended with large amount of ascites, hepatosplenomegaly; bowel sounds hypoactive EXTREMITIES: Generalized edema. SKIN: Normal; no rash; no jaundice. CURB SETTER: Nonresponsive Assessment and Plan Plan ASSESSMENT: - Upper GIB, with known hx of liver cirrhosis. Pt was dx 2 weeks ago. denies any previous GIB. She did give him one aleve last night, but states he normally does not take this. He vomited large amount of maroon blood in ER according to nurse. HH 10.9/35.4 prior to this. PRBC has been ordered. 2 units FFP. Octreotide/Protonix has been ordered. - Anemia secondary to above. HH 10.9/35.4. PRBC ordered. Octreotide, Protonix Gtt. - Liver cirrhosis with elevated LFTs. Dx with cirrhosis 2 weeks ago. reports that he was never heavy drinker. States he drank 2 beers a night up until 1 week ago when he stopped completely. She denies any history of hepatitis. He has never seen GI. Recent CT Scan abdomen/pelvis (12/13/16) which revealed 1. Cirrhosis of the liver. Vague focal hepatic lesion in the left hepatic lobe and further characterization with MRI of the abdomen with and without contrast recommended. A few other scattered subcentimeter liver hypodensities are most likely cysts. 2. Moderate ascites. 3. Patent portal vein. 4. No splenomegaly. 5. Trace effusions and mild atelectasis of both lung bases. 6. Previous retroperitoneal lymph node dissection. No lymphadenopathy demonstrated currently. 7. Right hydrocele fluid. 8. Small hiatal hernia. ADDENDUM: There is cholelithiasis without evidence of cholecystitis or biliary obstruction. MELD Score 28. Will check liver workup. - Coagulopathy. PT 18.3, INR 1.6. 2 units FFP ordered. - Severe hepatic encephalopathy. Unresponsive, Ammonia 578. Will consider lactulose/xifaxan after endoscopy. - Ascites. S/P bedside paracentesis. Fluid sent/pending. He is septic with lactic acidosis at 22. Vanco/Zosyn. - Left hepatic lobe lesion. Recent CT with vague focal hepatic lesion in the left hepatic lobe and further characterization with MRI of the abdomen with and without contrast recommended. A few other scattered subcentimeter liver hypodensities are most likely cysts. Will get AFP level. Can't have MRI with ARF. - Sepsis/Leukocytosis/Lactic acidosis. BCx, Urine Cx pending. S/P bedside paracentesis. - Respiratory failure. Vent per CCM - Acute renal failure with electrolyte abnormalities including K+ 6.8m, Creat 4.98. PLAN: - Plan for endoscopy with possible band ligation today - Obtain consents - NPO - NGT to LIWS - Octreotide Gtt - Protonix Gtt - Agree with PRBC - Give 2 units FFP - Monitor HH - AFP - Hepatitis profile - ANANT, AMA, ASMA - Ferritin, Iron Saturation - Ceruloplasmin, Alpha 1 Antitrypsin - Renal consulted - CCM following - Will need Lactulose/Xifaxan after procedure - Pt seen and examined by Dr. Echevarria and msyelf and this note is written on his behalf Mei Chowdhury Dec 18, 2016 15:03
[2016-12-18] MEDS ORDERED: PANTOPRAZOLE INJ 80 MG in SODIUM CHLORIDE 0.9% INJ 100 ML IV SCH (15:15)
[2016-12-18] MEDS ORDERED: PANTOPRAZOLE INJ 80 MG in SODIUM CHLORIDE 0.9% INJ 35 ML IV ONE (15:15)
[2016-12-18] MEDS ORDERED: PHENYLEPHRINE HCL 10 MG/ML VIAL ONE (15:23)
[2016-12-18] MEDS ORDERED: VASOPRESSIN 40 U/D5W 100 ML Shock/septic shock, do NOT titrate until taper off IV SCH ×2 (15:45)
[2016-12-18] MEDS ORDERED: OCTREOTIDE INJ 100 MCG/ML VIAL IV PUSH ONE (15:45)
--- NOTE | 2016-12-18 15:47 | PD.PROCEDR ---
Procedure Note Procedure REASON FOR PROCEDURE Invasive HD monitoring PROCEDURE PERFORMED R femoral arterial line placement CONSENT Emergency procedure ANESTHESIA Local injection of 1% Lidocaine DESCRIPTION OF THE PROCEDURE The patient was placed in supine, position. The area was exposed and cleansed with ChloraPrep, times two. Large sterile drape was used to cover the patient, with the site exposed, under sterile conditions including cap, face mask, sterile gown, and sterile gloves. On single attempt, the introducer needle was inserted with negative pressure in syringe and arterial flash was obtained. The guide wire was then advanced without any restriction and the needle was removed. Using Seldinger technique the 20 cm arterial catheter was advanced over the guide wire to a depth of 19 centimeters. The guide wire was removed. Good arterial waveform obtained. Antibiotic disc was placed around arterial line at puncture site and line was secured to the skin with two interrupted 2.0 silk sutures. ESTIMATED BLOOD LOSS: Less than 1 cc. Lev Dye MD Dec 18, 2016 15:47
[2016-12-18] MEDS ORDERED: HYDROCORTISONE SOD SUCCINATE 250 MG VIAL IV STA (15:49)
--- NOTE | 2016-12-18 15:49 | PD.PROCEDR ---
Central Line Procedure REASON FOR PROCEDURE Central venous access PROCEDURE PERFORMED Central line placement: Left subclavian central line CONSENT Emergency procedure ANESTHESIA Local injection of 1% Lidocaine DESCRIPTION OF THE PROCEDURE The patient was placed in supine, mild Trendelenburg position. The area was exposed and cleansed with ChloraPrep, times two. Large sterile drape was used to cover the patient, with the site exposed, under sterile conditions including cap, face mask, sterile gown, and sterile gloves. On single attempt, the introducer needle was inserted with negative pressure in syringe and venous flash was obtained. The guide wire was then advanced without any restriction and the needle was removed. The dilator was used without any complications. Using Seldinger technique the 20 CM 7F Triple lumen catheter was advanced over the guide wire to a depth of 18 centimeters. The guide wire was removed. All ports were aspirated with dark venous blood return and flushed easily with sterile saline. All ports were capped. Antibiotic disc was placed around central line at puncture site. The central line was secured to the skin with two interrupted 2.0 silk sutures. The area was bandaged with sterile see- through central line bandage. COMPLICATIONS: No apparent complications ESTIMATED BLOOD LOSS: Less than 1 cc. Lev Dye MD Dec 18, 2016 15:49
[2016-12-18] MEDS ORDERED: RESP: ALBUTEROL 2.5 MG/IPRATROPIUM 0.5 MG NEB (SCH) NEB ×2 (16:00→20:00)
[2016-12-18] MEDS ORDERED: CALCIUM CHLORIDE INJ 2 GM in DEXTROSE 5% IN WATER 100ML INJ 100 ML IV ONE ×2 (16:00)
[2016-12-18] MEDS ORDERED: SODIUM BICARBONATE 8.4% INJ 150 MEQ in WATER STERILE FOR INJ 850 ML IV SCH (16:00)
[2016-12-18] MEDS ORDERED: VANCOMYCIN 1,000 MG/NS 250 ML IV ONE ×2 (16:00)
[2016-12-18] MEDS ORDERED: HYDROCORTISONE SOD SUCCINATE 250 MG VIAL IV SCH (16:00)
[2016-12-18 16:08] LABS: BLOOD GAS BASE EXCESS -22.7 mmol/L (-2-2); BLOOD GAS HCO3 8 mmol/L (22-26); BLOOD GAS METHEMOGLOBIN 1.3 % (0-2); BLOOD GAS O2 HGB SATURATION 90 % (90-100); BLOOD GAS PCO2 46 mmHg (38-42); BLOOD GAS PO2 116 mmHg (61-120); BLOOD GAS TOTAL HGB 9.3 G/DL (12.0-16.0); TEMP CORR TO 98.6
[2016-12-18 16:08] LABS: HEMATOCRIT 30.2 % (39.0-51.0); MEAN CELL VOLUME 113.1 FL (80.0-100.0); MEAN CORPUSCULAR HEMOGLOBIN 35.5 PG (27.0-34.0); MEAN CORPUSCULAR HGB CONC 31.4 % (32.0-36.0); PLATELET COUNT 192 TH/MM3 (150-450); RED BLOOD COUNT 2.67 MIL/MM3 (4.50-5.90); RED CELL DISTRIBUTION WIDTH 13.9 % (11.6-17.2); WHITE BLOOD COUNT 30.2 TH/MM3 (4.0-11.0)
[2016-12-18 16:09] LABS: FIO2 100 %; OXYGEN DEVICE VENTILATOR
[2016-12-18 16:10] LABS: DRAW SITE ART LINE; NUMBER OF ARTERIAL PUNCTURES 0; STAT NO; ULNAR PULSE PRESENT; VENT SETTINGS AC/20/600/PEEP12
[2016-12-18] MEDS ORDERED: OCTREOTIDE INJ 500 MCG in SODIUM CHLORID 0.9% 500 ML INJ 499.5 ML IV SCH (16:15)
[2016-12-18 16:19] LABS: HEMO FLAGS AUTO DIFF
[2016-12-18 16:41] LABS: ALKALINE PHOSPHATASE 120 U/L (45-117); ALT (GPT) 211 U/L (12-78); ANION GAP 29 MEQ/L (5-15); AST (GOT) 496 U/L (15-37); BICARBONATE 9.9 MEQ/L (21.0-32.0); BLOOD UREA NITROGEN 95 MG/DL (7-18); CHLORIDE 101 MEQ/L (98-107); GLOMERULAR FILTRATION RATE 12 ML/MIN (>89); MAGNESIUM 2.5 MG/DL (1.5-2.5); POTASSIUM 6.5 MEQ/L (3.5-5.1); SODIUM (NA) 140 MEQ/L (136-145); TOTAL BILIRUBIN ADULT 1.2 MG/DL (0.2-1.0)
[2016-12-18 16:45] LABS: BANDS 11 % (0-6); CORRECTED NUCLEATED RBC 2 /100 WBC (0-0); METAMYELOCYTES 1 % (0-1); MYELOCYTES 1 % (0-0); NEUTROPHIL # MANUAL DIFF 23.3 TH/MM3 (1.8-7.7); POLYS (SEG NEUTROPHILS) 64 % (16-70); WBC DIFF SAMPLE 100
[2016-12-18 16:46] LABS: PLATELET ESTIMATE SMEAR NORMAL (NORMAL); PLATELET MORPHOLOGY NORMAL (NORMAL); SCAN/DIFF FINAL DIFF MANUAL
--- NOTE | 2016-12-18 16:46 | RADRPT ---
EXAM DATE/TIME: 12/18/2016 15:40 [facility] COMPARISON: CHEST SINGLE AP, December 18, 2016, 13:04. INDICATIONS : Central line placement. MEDICAL HISTORY : Hypertension. SURGICAL HISTORY : Orchiectomy ENCOUNTER: Subsequent ACUITY: 1 day PAIN SCORE: Non-responsive. LOCATION: Bilateral chest FINDINGS: ET tube tip is 4 cm from the amanda. There is an NG tube in place with its tip directed into the stom ach. There is a left subclavian line place with the tip overlying the upper SVC. A pneumothorax is no t seen. The cardiac silhouette is mildly enlarged. There is increased density at the left base. The r ight lung is clear. There is evidence of old right rib fractures. CONCLUSION: 1. New left subclavian line in place. 2. Mild cardiomegaly. 3. Left base consolidation or atelectasis. Some degree of left effusion can be considered. Hardik Garcia MD on December 18, 2016 at 16:41 Board Certified Radiologist. This report was verified electronically.
--- NOTE | 2016-12-18 16:48 | PD.PROCEDR ---
Procedure Note Procedure Procedure: Paracentesis Patient was placed in supine position and full barrier and sterile precautions were used. LLQ site marked with US. 1% lidocaine was used to anesthetize the skin and subcutaneous tissue, a small skin neck was made with the scalpel. Paracentesis Angiocath was introduced into peritoneal space and mildly cloudy yellow fluid aspirated. Needle was removed and Angiocath connected to Vacutainer via tubing. Approximately 6500 ml of mildly cloudy yellow fluid removed. Patient tolerated well, blood loss less than 1ml. Fluid sent for further studies. Total 50 g of IV albumin given before and during procedure. Lev Dye MD Dec 18, 2016 16:48
[2016-12-18] MEDS ORDERED: THIAMINE INJ 100 MG in SODIUM CHLORIDE 0.9% INJ 100 ML IV SCH (17:00)
--- NOTE | 2016-12-18 17:01 | EKG ---
Date Performed: 12/18/2016 Time Performed: 11:59:19 PTAGE: 61 years EKG: Sinus rhythm BASELINE ARTEFACT LOW QRS VOLTAGE IN PRECORDIAL LEADS POSSIBLE ANTERIOR MYOCARDIAL INFARCTION INFERI OR MYOCARDIAL INFARCTION ABNORMAL ECG NO PREVIOUS TRACING DOCTOR: Wilner Delacruz Interpretating Date/Time 12/18/2016 16:59:09
[2016-12-18] MEDS ORDERED: PIPERACIL-TAZO 2.25 GM PREMIX 50 ML IV SCH (17:15)
[2016-12-18 17:21] LABS: BLOOD GAS BASE EXCESS -23.9 mmol/L (-2-2); BLOOD GAS HCO3 7 mmol/L (22-26); BLOOD GAS METHEMOGLOBIN 1.4 % (0-2); BLOOD GAS O2 HGB SATURATION 95 % (90-100); BLOOD GAS OXYGEN CONTENT 13.2 Vol % (12.0-20.0); BLOOD GAS PCO2 37 mmHg (38-42); BLOOD GAS PO2 166 mmHg (61-120); BLOOD GAS TOTAL HGB 9.6 G/DL (12.0-16.0); CRITICAL VALUE YES; DRAW SITE ART LINE; FIO2 100 %; NUMBER OF ARTERIAL PUNCTURES 0; OXYGEN DEVICE VENTILATOR; STAT YES; TEMP CORR TO 98.6; ULNAR PULSE PRESENT; VENT SETTINGS AC28/650/PEEP12
[2016-12-18] MEDS ORDERED: GLUCAGON 1 MG/ML VIAL OTHER PRN (17:30)
[2016-12-18] MEDS ORDERED: DEXTROSE 50% IN WATER 50 ML VIAL(D50) IV PUSH PRN (17:30)
[2016-12-18 17:32] LABS: HEMATOCRIT 31.4 % (39.0-51.0); REVIEW FLAG FINAL
[2016-12-18 17:52] LABS: POTASSIUM 6.2 MEQ/L (3.5-5.1); TRANSFERRIN IRON PROFILE 77 MG/DL (200-360)
[2016-12-18 17:56] LABS: BLOOD GAS BASE EXCESS -24.7 mmol/L (-2-2); BLOOD GAS HCO3 5 mmol/L (22-26); BLOOD GAS METHEMOGLOBIN 1.3 % (0-2); BLOOD GAS O2 HGB SATURATION 96 % (90-100); BLOOD GAS OXYGEN CONTENT 13.2 Vol % (12.0-20.0); BLOOD GAS PCO2 28 mmHg (38-42); BLOOD GAS PO2 190 mmHg (61-120); BLOOD GAS TOTAL HGB 9.5 G/DL (12.0-16.0); TEMP CORR TO 98.6
--- NOTE | 2016-12-18 17:56 | PD.PROCEDR ---
Central Line Procedure REASON FOR PROCEDURE Central venous access PROCEDURE PERFORMED Central line placement: RIJ HD catheter, ultrasound-guided CONSENT Emergency hemodialysis catheter insertion ANESTHESIA Local injection of 1% Lidocaine DESCRIPTION OF THE PROCEDURE The patient was placed in supine, mild Trendelenburg position. The area was exposed and cleansed with ChloraPrep, times two. Large sterile drape was used to cover the patient, with the site exposed, under sterile conditions including cap, face mask, sterile gown, and sterile gloves. On single attempt, the introducer needle was inserted with negative pressure in syringe and venous flash was obtained. The guide wire was then advanced without any restriction and the needle was removed. The dilator was used without any complications. Using Seldinger technique the 20 CM 14F two lumen catheter was advanced over the guide wire to a depth of 18 centimeters. The guide wire was removed. All ports were aspirated with dark venous blood return and flushed easily with sterile saline. All ports were capped. Antibiotic disc was placed around central line at puncture site. The central line was secured to the skin with two interrupted 2.0 silk sutures. The area was bandaged with sterile see- through central line bandage. RADIOLOGICAL DATA Ultrasound guidance was used to locate RIJ COMPLICATIONS: No apparent complications ESTIMATED BLOOD LOSS: Less than 1 cc. Lev Dye MD Dec 18, 2016 17:56
[2016-12-18 17:57] LABS: DRAW SITE ART LINE; FIO2 100 %; NUMBER OF ARTERIAL PUNCTURES 0; OXYGEN DEVICE PC/32/IP34/0.7/+10; STAT YES; ULNAR PULSE PRESENT
[2016-12-18] MEDS ORDERED: LACTULOSE SYRUP 20 GM/30 ML CUP PO SCH (18:00)
[2016-12-18] MEDS ORDERED: INSULIN ASPART SUPPLEMENTAL SCALE SQ SCH (18:00)
[2016-12-18 18:11] LABS: FERRITIN 2895 NG/ML (26-388)
--- NOTE | 2016-12-18 18:26 | RADRPT ---
EXAM DATE/TIME: 12/18/2016 17:38 [facility] COMPARISON: CHEST SINGLE AP, December 18, 2016, 15:40. INDICATIONS : VAS Cath placement MEDICAL HISTORY : Hypertension. Hypercholesterolemia. Carcinoma, prostatic. SURGICAL HISTORY : None. ENCOUNTER: Subsequent ACUITY: 1 week PAIN SCORE: Non-responsive. LOCATION: Bilateral chest FINDINGS: A single view of the chest demonstrates endotracheal tube tip in satisfactory position. Nasogastric t ube has been removed. Left central line and right central line in superior vena cava. No pneumothorax . Bilateral airspace disease, left greater than right. Multiple remote right rib fractures. CONCLUSION: 1. Placement of a right vas catheter tip in superior vena cava. No pneumothorax. Beck Shrestha MD on December 18, 2016 at 18:22 Board Certified Radiologist. This report was verified electronically.
[2016-12-18] MEDS ORDERED: SODIUM CHLOR 0.9% 1000 ML INJ 1,000 ML IV PRN ×3 (18:28)
[2016-12-18] MEDS ORDERED: ONDANSETRON HCL 4 MG/2 ML VIAL IV PRN (18:30)
[2016-12-18] MEDS ORDERED: HEPARIN SODIUM - IV 10,000 UNITS/10 ML VIAL PRN (18:30)
[2016-12-18] MEDS ORDERED: MANNITOL 12.5 GM/50 ML VIAL IV PRN (18:30)
[2016-12-18] MEDS ORDERED: ACETAMINOPHEN 325 MG TAB PO PRN (18:30)
[2016-12-18] MEDS ORDERED: GENTAMICIN SULFATE (DIALYSIS USE ONLY) 20 MG/2 ML VIAL IV PRN (18:30)
[2016-12-18] MEDS ORDERED: diphenhydrAMINE HCL 25 MG CAP PO PRN (18:30)
[2016-12-18] MEDS ORDERED: SODIUM CHLORIDE 0.9% FLUSH 10 ML FLUSH IV FLUSH PRN (18:30)
[2016-12-18] MEDS ORDERED: cloNIDine HCL 0.1 MG TAB PO PRN (18:30)
[2016-12-18] MEDS ORDERED: ALBUMIN HUMAN 25% 25 GM/100 ML BAGP IV PRN (18:30)
[2016-12-18] MEDS ORDERED: GELATIN 12 MM/7 MM FOAM TOP PRN (18:30)
[2016-12-18] MEDS ORDERED: NITROGLYCERIN 0.4 MG SL 25 TABS/BTL SL PRN (18:30)
[2016-12-18 18:57] LABS: PERITONEAL HISTIOCYTES 12 %; PERITONEAL LYMPHS 25 %; PERITONEAL MONOS 2 %; PERITONEAL POLYS(SEGS) 60 %; PERITONEAL WBC 138 /MM3 (0-10)
--- NOTE | 2016-12-18 19:23 | PD.CONS ---
HPI Service Nephrology Consult Requested By Dr. Dye Reason for Consult ARF Primary Care Physician Non-Staff History of Present Illness The patient is a 61 yo [place] male who was EVAC'd to this facility after he developed acute altered mental status at home. According to records, as the patient is now intubated, was c/o SOB for about 1 week prior to arrival. Was only recently diagnosed with cirrhosis of the liver (potentially non-EtOH related). Since admission, he was emergently intubated and transfused as coffee-ground emesis was discovered in mouth and airway intubation. Been placed on inotropic support. Had EGD with banding of varices. Also underwent paracentesis with 6.5L removed. Oliguric since admission despite aggressive IV resuscitation. We have been consulted for renal injury with associated hyperkalemia and acidosis. VasCath as been placed by CC. (Maria Fernanda Rodriguez) Review of Systems ROS Limitations: Unresponsive (Maria Fernanda Rodriguez) Past Family Social History Allergies: Coded Allergies: No Known Allergies (Unverified , 12/18/16) Past Medical History Liver cirrhosis, diagnosed about 2 weeks ago Ascites Left hepatic lobe lesion on CT scan about a week ago Cholelithiasis Hyperlipidemia DM HTN Hypertriglyceridemia Testicular cancer- 13 years ago Past Surgical History Lymph node resection Prostatectomy Testicle removed for cancer Reported Medications Reported Meds & Active Scripts Active Reported Zocor (Simvastatin) 20 Mg Tab 20 Mg PO DAILY Metformin (Metformin HCl) 1,000 Mg Tab 1,000 Mg PO BIDPC With meals Norvasc (Amlodipine Besylate) 2.5 Mg Tab 2.5 Mg PO DAILY Lasix (Furosemide) 20 Mg Tab 20 Mg PO DAILY Lisinopril 20 Mg Tab 20 Mg PO DAILY Active Ordered Medications Current Medications Medications (Trade) Dose Ordered Sig/Vangie Route Start Time Stop Time Status Last Admin (NS Flush) 2 ml UNSCH PRN IV FLUSH 12/18/16 12:30 Terbutaline Sulfate 1 mg 1 mg UNSCH PRN SQ 12/18/16 13:30 Sodium Chloride 250 ml @ 15 mls/hr ONCE ONCE IV 12/18/16 13:45 12/19/16 06:24 (NS 1000 ml Inj) 1,000 ml @ 75 mls/hr [id number] IV 12/18/16 14:05 (fentaNYL INJ) 50 mcg Q1H PRN IV 12/18/16 14:15 (Peridex 0.12% Liq) 15 ml BID@08,20 MT 12/18/16 20:00 Miscellaneous Information 1 [id number] 12/18/16 14:15 (Chlorhexidine 2% Cloth) 3 pack Taper DAILY@04 TOP 12/19/16 04:00 12/15/17 03:59 Chlorhexidine Gluconate 3 pack 3 pack UNSCH PRN TOP 12/18/16 14:15 (Diprivan 1000 Mg/100ml Inj) 100 ml @ 0 mls/hr TITRATE IV 12/18/16 14:15 (Lactulose Liq) 30 ml QID PO 12/18/16 18:00 Rifaximin 550 mg 550 mg Q12H PO 12/18/16 15:00 Pharmacy Profile Note 0 ml @ 0 mls/hr UNSCH OTHER 12/18/16 14:15 (Levophed-Dextrose Drip) 250 ml @ 0 mls/hr TITRATE IV 12/18/16 16:00 Terbutaline Sulfate 1 mg 1 mg UNSCH PRN SQ 12/18/16 14:15 Sodium Bicarbonate 150 meq/Sterile Water 1,000 ml @ 150 mls/hr Q6H40M IV 12/18/16 16:00 Thiamine HCl 100 mg/Sodium Chloride 101 ml @ 101 mls/hr DAILY IV 12/18/16 17:00 Pantoprazole Sodium 80 mg/ Sodium Chloride 100 ml @ 10 mls/hr Q10H IV 12/18/16 15:15 (NS 250 ml Inj) 250 ml @ 15 mls/hr ONCE ONCE IV 12/18/16 14:30 12/19/16 07:09 Albumin Human 25 gm 25 gm Q12H IV 12/18/16 15:00 12/20/16 14:59 Sodium Chloride 250 ml @ 15 mls/hr ONCE ONCE IV 12/18/16 15:30 12/19/16 08:09 (Pitressin Inj/ D5W 100 ml Inj) 100 ml @ 6 mls/hr [id number] IV 12/18/16 15:45 (SoluCORTEF INJ) 100 mg Q8HR IV 12/18/16 16:00 Insulin Aspart 1 1 Q4H SQ 12/18/16 18:00 (Zosyn 2.25 Gm Premix) 50 ml @ 100 mls/hr Q6H IV 12/18/16 17:15 (D50w (Vial) Inj) 25 ml UNSCH PRN IV PUSH 12/18/16 17:30 Glucagon 1 mg 1 mg UNSCH PRN OTHER 12/18/16 17:30 Levofloxacin/ Dextrose 150 ml @ 100 mls/hr Q48H IV 12/18/16 18:15 UNV Sodium Chloride 1,000 ml @ 0 mls/hr Q0M PRN IV 12/18/16 18:28 UNV Sodium Chloride 1,000 ml @ 200 mls/hr Q5H PRN IV 12/18/16 18:28 UNV (NS 1000 ml Inj) 1,000 ml @ 0 mls/hr Q0M PRN IV 12/18/16 18:28 UNV (Mannitol Inj) 12.5 gm UNSCH PRN IV 12/18/16 18:30 UNV (Albumin 25% Inj) 25 gm UNSCH PRN IV 12/18/16 18:30 UNV (NS Flush) 5 ml UNSCH PRN IV FLUSH 12/18/16 18:30 UNV (Heparin Inj) UNSCH PRN .XX 12/18/16 18:30 UNV (Gentamicin (Dialysis) Inj) 20 mg UNSCH PRN IV 12/18/16 18:30 UNV (Zofran Inj) 4 mg UNSCH PRN IV 12/18/16 18:30 UNV (Tylenol) 650 mg UNSCH PRN PO 12/18/16 18:30 UNV (Benadryl) 25 mg UNSCH PRN PO 12/18/16 18:30 UNV (Nitrostat Sl) 0.4 mg UNSCH PRN SL 12/18/16 18:30 UNV (Catapres) 0.1 mg UNSCH PRN PO 12/18/16 18:30 UNV (Gelfoam 12 Mm/7 Mm Top) 1 foam UNSCH PRN TOP 12/18/16 18:30 UNV Family History NC Social History Previous EtOH use, but only reported at as a couple drinks per day No illicits in previous records (Maria Fernanda Rodriguez) Physical Exam Vital Signs Vital Signs Date Time Temp Pulse Resp B/P Pulse Ox O2 Delivery O2 Flow Rate FiO2 12/18/16 17:23 100 100 12/18/16 17:00 100 12/18/16 16:00 95.6 67 22 68/42 90 115/35 12/18/16 16:00 67 12/18/16 15:17 100 100 12/18/16 15:15 91 100 12/18/16 14:51 92 100 12/18/16 12:09 84 22 92/55 86 Non-Rebreather 15 12/18/16 11:45 86 12/18/16 11:45 89 100 Physical Exam GENERAL: Intubated, sedated SKIN: Warm and dry. HEAD: Atraumatic. Normocephalic. EYES: Pupils equal and round. No scleral icterus. No injection or drainage. ENT: No nasal bleeding or discharge. Mucous membranes pink and moist. NECK: Trachea midline. No JVD. CARDIOVASCULAR: Regular rate and rhythm. RESPIRATORY: Intubated. Diminished breath sounds throughout. GASTROINTESTINAL: Abdomen distended MUSCULOSKELETAL: Extremities without clubbing. 1+ edema in BLE NEUROLOGICAL: Intubated PSYCHIATRIC: Intubated Laboratory Laboratory Tests Test 12/18/16 12/18/16 12/18/16 12/18/16 12:35 13:15 13:49 13:50 White Blood Count 27.7 Red Blood Count 3.07 Hemoglobin 10.9 Hematocrit 35.4 Mean Corpuscular Volume 115.3 Mean Corpuscular Hemoglobin 35.5 Mean Corpuscular Hemoglobin 30.8 Concent Red Cell Distribution Width 14.4 Platelet Count 213 Mean Platelet Volume 8.7 Neutrophils (%) (Auto) 71.8 Lymphocytes (%) (Auto) 20.6 Monocytes (%) (Auto) 6.4 Eosinophils (%) (Auto) 0.6 Basophils (%) (Auto) 0.6 Neutrophils # (Auto) 19.9 Lymphocytes # (Auto) 5.7 Monocytes # (Auto) 1.8 Eosinophils # (Auto) 0.2 Basophils # (Auto) 0.2 CBC Comment AUTO DIFF Differential Total Cells 100 Counted Neutrophils % (Manual) 66 Band Neutrophils % 12 Lymphocytes % 13 Monocytes % 2 Eosinophils % 1 Neutrophils # (Manual) 23.3 Metamyelocytes 3 Myelocytes 2 Promyelocytes 1 Differential Comment FINAL DIFF MANUAL Platelet Estimate NORMAL Platelet Morphology Comment NORMAL Red Cell Morphology Comment NORMAL Prothrombin Time 18.3 Prothromb Time International 1.6 Ratio Activated Partial 39.6 Thromboplast Time Sodium Level 139 Potassium Level 6.8 Chloride Level 101 Carbon Dioxide Level 7.7 Anion Gap 30 Blood Urea Nitrogen 91 Creatinine 4.98 Estimat Glomerular Filtration 12 Rate Random Glucose 82 Lactic Acid Level 22.0 Calcium Level 8.2 Total Bilirubin 1.2 Aspartate Amino Transf 153 (AST/SGOT) Alanine Aminotransferase 84 (ALT/SGPT) Alkaline Phosphatase 118 Ammonia 578 Total Creatine Kinase 147 Troponin I 0.02 Total Protein 5.4 Albumin 1.7 Thyroid Stimulating Hormone 6.210 3rd Gen Ethyl Alcohol Level LESS THAN 3 Blood Type A POSITIVE Antibody Screen NEGATIVE Blood Bank Comment Urine Color YELLOW Urine Turbidity HAZY Urine pH 5.5 Urine Specific [place] 1.021 Urine Protein 30 Urine Glucose (UA) NEG Urine Ketones NEG Urine Occult Blood MOD Urine Nitrite NEG Urine Bilirubin NEG Urine Urobilinogen 2.0 Urine Leukocyte Esterase LARGE Urine RBC 12 Urine WBC Urine WBC Clumps MOD Urine Squamous Epithelial <1 Cells Urine Transitional Epithelial <1 Cells Urine Bacteria FEW Urine Hyaline Casts 8 Urine Mucus FEW Urine Yeast (Budding) RARE Microscopic Urinalysis Comment CATH-CULTURE IND Urine Opiates Screen POS Urine Barbiturates Screen NEG Urine Amphetamines Screen NEG Urine Benzodiazepines Screen NEG Urine Cocaine Screen NEG Urine Cannabinoids Screen NEG Blood Gas Puncture Site RT BRACHIAL Blood Gas Patient Temperature 98.6 Blood Gas HCO3 8 Blood Gas Base Excess -23.4 Blood Gas Oxygen Saturation 72 Arterial Blood pH 6.76 Arterial Blood Partial 63 Pressure CO2 Arterial Blood Partial 75 Pressure O2 Arterial Blood Oxygen Content 9.6 Arterial Blood 0.0 Carboxyhemoglobin Arterial Blood Methemoglobin 0.6 Blood Gas Hemoglobin 9.4 Oxygen Delivery Device VENTILATOR Blood Gas Ventilator Setting 470/22/+5/1.0 Blood Gas Inspired Oxygen 100 Crossmatch Leukocyte-Reduced Red Blood Cells Test 12/18/16 12/18/16 12/18/16 12/18/16 15:24 15:44 15:45 15:47 Blood Bank Comment Lactic Acid Level 21.4 Blood Type A POSITIVE White Blood Count 30.2 Red Blood Count 2.67 Hemoglobin 9.5 Hematocrit 30.2 Mean Corpuscular Volume 113.1 Mean Corpuscular Hemoglobin 35.5 Mean Corpuscular Hemoglobin 31.4 Concent Red Cell Distribution Width 13.9 Platelet Count 192 Mean Platelet Volume 8.4 Neutrophils (%) (Auto) Lymphocytes (%) (Auto) Monocytes (%) (Auto) Eosinophils (%) (Auto) Basophils (%) (Auto) Neutrophils # (Auto) Lymphocytes # (Auto) Monocytes # (Auto) Eosinophils # (Auto) Basophils # (Auto) CBC Comment AUTO DIFF Differential Total Cells 100 Counted Neutrophils % (Manual) 64 Band Neutrophils % 11 Lymphocytes % 20 Monocytes % 3 Neutrophils # (Manual) 23.3 Metamyelocytes 1 Myelocytes 1 Nucleated Red Blood Cells 2 Differential Comment FINAL DIFF MANUAL Platelet Estimate NORMAL Platelet Morphology Comment NORMAL Sodium Level 140 Potassium Level 6.5 Chloride Level 101 Carbon Dioxide Level 9.9 Anion Gap 29 Blood Urea Nitrogen 95 Creatinine 4.87 Estimat Glomerular Filtration 12 Rate Random Glucose 74 Calcium Level 7.9 Magnesium Level 2.5 Total Bilirubin 1.2 Aspartate Amino Transf 496 (AST/SGOT) Alanine Aminotransferase 211 (ALT/SGPT) Alkaline Phosphatase 120 Total Protein 4.7 Albumin 1.8 Test 12/18/16 12/18/16 12/18/16 12/18/16 16:00 16:11 17:15 17:45 Blood Gas Puncture Site ART LINE ART LINE ART LINE Blood Gas Patient Temperature 98.6 98.6 98.6 Blood Gas HCO3 8 7 5 Blood Gas Base Excess -22.7 -23.9 -24.7 Blood Gas Oxygen Saturation 90 95 96 Arterial Blood pH 6.86 6.88 6.91 Arterial Blood Partial 46 37 28 Pressure CO2 Arterial Blood Partial 116 166 190 Pressure O2 Arterial Blood Oxygen Content 12.0 13.2 13.2 Arterial Blood 0.0 0.0 0.0 Carboxyhemoglobin Arterial Blood Methemoglobin 1.3 1.4 1.3 Blood Gas Hemoglobin 9.3 9.6 9.5 Oxygen Delivery Device VENTILATOR VENTILATOR PC/32/IP34/0.7/+10 Blood Gas Ventilator Setting AC/20/600/PEEP12 AC28/650/PEEP12 Blood Gas Inspired Oxygen 100 100 100 Peritoneal Fluid WBC 138 Peritoneal Fluid RBC 175 Peritoneal Fluid Neutrophils 60 Peritoneal Fluid Lymphocytes 25 Peritoneal Fluid Monocytes 2 Peritoneal Fluid Histiocytes 12 Hemoglobin 9.8 Hematocrit 31.4 Potassium Level 6.2 Iron Level 100 Total Iron Binding Capacity 108 Percent Iron Saturation 92.8 Ferritin 2895 Lactate Dehydrogenase 891 Total Protein 4.9 Tumor Marker Alpha Fetoprotein 3.5 Blood Gas Liter Flow Date/Time Procedure Status Source Growth 12/18/16 16:11 Gram Stain Received Fluid Peritoneal Fluid Pending 12/18/16 16:11 Body Fluid Culture Received Fluid Peritoneal Fluid Pending 12/18/16 13:15 Urine Culture Received Urine Catheterized Urine Pending 12/18/16 12:40 Aerobic Blood Culture Received Blood Peripheral Pending 12/18/16 12:40 Anaerobic Blood Culture Received Blood Peripheral Pending (Maria Fernanda Rodriguez) Result Diagram: 12/18/16 1715 12/18/16 1715 Imaging Last Impressions Chest X-Ray 12/18/16 1226 Signed Impressions: Service Date/Time: Sunday, December 18, 2016 13:04 - CONCLUSION: 1. Left basilar consolidation. 2. Cardiomegaly. 3. Adequate placement of endotracheal tube. Joel Mitchell MD (Maria Fernanda Rodriguez) Assessment and Plan Problem List: (1) Acute kidney failure Plan: Pt emergent placed on HD tonight given his renal dysfunction with associated hyperkalemia and severe acidosis. He is oliguric Is on inotropic support, so minimal UF requested. Will re-evaluate tomorrow to see if HD support is needed. May require CRRT if he is hemodynamically unstable. ARF from hemodynamic shock. Unclear if septic as well. BCx and UCx pending. Prognosis at this time is guarded. (2) Sepsis with multi-organ dysfunction Plan: Intubated, on pressors Mgmt as per CC (3) Lactic acidemia Plan: Noted that the patient was on Metformin. Uncertain significance of this in regards to his lactic acidosis. Will correct with HD (4) Hyperammonemia (5) Liver cirrhosis (6) UGIB (upper gastrointestinal bleed) Plan: s/p variceal banding and transfusion (Maria Fernanda Rodriguez) Assessment and Plan Patient is critically ill. Guarded prognosis. Case discussed with critical care. Dialysis orders placed. Reevaluate in a.m. The exam, history, and the medical decision-making described in the above note were completed with the assistance of the [facility]. I reviewed and agree with the findings presented. I attest that I had a [id number] encounter with the patient on the same day, and personally performed and documented my assessment and findings in the medical record. (Shanel Mantilla MD) Problem Qualifiers (1) Acute kidney failure: Qualified Code: N17.9 - Acute renal failure, unspecified acute renal failure type Maria Fernanda Rodriguez Dec 18, 2016 19:23 Shanel Mantilla MD Dec 18, 2016 19:24
--- NOTE | 2016-12-18 19:25 | ECHRPT ---
Indication: septic shock CONCLUSIONS The left ventricle is suboptimally the left ventricular systolic function is grossly normal on limit ed imaging. visualized. Normal left ventricular size. The right ventricular systoilc function is normal. the right ventricle is dilated The mitral valve is suboptimally visualized but appears unremarkable.The aortic valve is not well vi sualized but appears unremarkable. The tricuspid valve is not well visualized. The pulmonary valve is not visualized. The inferior vena cava is not visualized.. BP: / HR: Rhythm: MEASUREMENTS (Male / Female) Normal Values Technical Quality:Very technically difficult study 2D ECHO LV Diastolic Diameter PLAX 3.2 cm 4.2 - 5.9 / 3.9 - 5.3 cm LV Systolic Diameter PLAX 2.7 cm IVS Diastolic Thickness 1.6 cm 0.6 - 1.0 / 0.6 - 0.9 cm LVPW Diastolic Thickness 0.9 cm 0.6 - 1.0 / 0.6 - 0.9 cm LV Relative Wall Thickness 0.8 RV Internal Dim ED PLAX 3.8 cm M-MODE Aortic Root Diameter MM 2.9 cm LA Systolic Diameter MM 3.1 cm LA Ao Ratio MM 1.1 DOPPLER Mitral E Point Velocity 48.4 cm/s Mitral A Point Velocity 52.3 cm/s Mitral E to A Ratio 0.9 LV E' Lateral Velocity 11.8 cm/s Mitral E to LV E' Lateral Ratio 4.1 LV E' Septal Velocity 9.5 cm/s Mitral E to LV E' Septal Ratio 5.1 TR Peak Velocity 195.0 cm/s TR Peak Gradient 15.2 mmHg FINDINGS LEFT VENTRICLE The left ventricle is suboptimally the left ventricular systolic function is grossly normal on limit ed imaging. visualized. Normal left ventricular size. RIGHT VENTRICLE The right ventricular systoilc function is normal. the right ventricle is dilated LEFT ATRIUM The left atrial size is normal. RIGHT ATRIUM The right atrial size is normal. ATRIAL SEPTUM AORTA The aortic root and proximal ascending aorta are normal in size on limited imaging. MITRAL VALVE The mitral valve is suboptimally visualized but appears unremarkable. AORTIC VALVE The aortic valve is not well visualized but appears unremarkable. TRICUSPID VALVE The tricuspid valve is not well visualized. PULMONARY VALVE The pulmonary valve is not visualized. VESSELS The inferior vena cava is not visualized.. PERICARDIUM No pericardial effusion. Cresencio Dash MD (Electronically Signed) Final Date:18 December 2016 19:24
[2016-12-18] MEDS ORDERED: PHENYLEPHRINE 40 MG/D5W 496 ML ADMIX IV SCH ×2 (19:30)
--- NOTE | 2016-12-18 19:57 | HHI.GIFU ---
Subjective Remarks Immediate postop note: EGD with esophageal variceal banding Indication: massive upper GI bleed Meds: MAC Pt in ICU on vent Findings: Esophageal varices grade IV, 5 bands applied with apparent good effect , at distal esophagus Stomach: upper stomach and fundus could not be seen due to dark blood and clots Cannot rule out gastric varices near the GEJ Gastric antrum well seen and no ulcerations Duodenum well seen and no ulcers. Objective Vitals I&O Vital Signs Date Time Temp Pulse Resp B/P Pulse Ox O2 Delivery O2 Flow Rate FiO2 12/18/16 19:26 84 100 12/18/16 18:00 80 105/32 12/18/16 17:23 100 100 12/18/16 17:00 100 12/18/16 17:00 95.8 80 114/33 12/18/16 16:00 95.6 67 22 68/42 90 115/35 12/18/16 16:00 67 12/18/16 15:17 100 100 12/18/16 15:15 91 100 12/18/16 15:00 66 22 70/38 93 Ventilator 12/18/16 14:51 92 100 12/18/16 12:20 100 12/18/16 12:09 84 22 92/55 86 Non-Rebreather 15 12/18/16 11:45 86 12/18/16 11:45 89 100 Laboratory Laboratory Tests Test 12/18/16 12/18/16 12/18/16 12/18/16 12:35 13:15 13:49 13:50 White Blood Count 27.7 Red Blood Count 3.07 Hemoglobin 10.9 Hematocrit 35.4 Mean Corpuscular Volume 115.3 Mean Corpuscular Hemoglobin 35.5 Mean Corpuscular Hemoglobin 30.8 Concent Red Cell Distribution Width 14.4 Platelet Count 213 Mean Platelet Volume 8.7 Neutrophils (%) (Auto) 71.8 Lymphocytes (%) (Auto) 20.6 Monocytes (%) (Auto) 6.4 Eosinophils (%) (Auto) 0.6 Basophils (%) (Auto) 0.6 Neutrophils # (Auto) 19.9 Lymphocytes # (Auto) 5.7 Monocytes # (Auto) 1.8 Eosinophils # (Auto) 0.2 Basophils # (Auto) 0.2 CBC Comment AUTO DIFF Differential Total Cells 100 Counted Neutrophils % (Manual) 66 Band Neutrophils % 12 Lymphocytes % 13 Monocytes % 2 Eosinophils % 1 Neutrophils # (Manual) 23.3 Metamyelocytes 3 Myelocytes 2 Promyelocytes 1 Differential Comment FINAL DIFF MANUAL Platelet Estimate NORMAL Platelet Morphology Comment NORMAL Red Cell Morphology Comment NORMAL Prothrombin Time 18.3 Prothromb Time International 1.6 Ratio Activated Partial 39.6 Thromboplast Time Sodium Level 139 Potassium Level 6.8 Chloride Level 101 Carbon Dioxide Level 7.7 Anion Gap 30 Blood Urea Nitrogen 91 Creatinine 4.98 Estimat Glomerular Filtration 12 Rate Random Glucose 82 Lactic Acid Level 22.0 Calcium Level 8.2 Total Bilirubin 1.2 Aspartate Amino Transf 153 (AST/SGOT) Alanine Aminotransferase 84 (ALT/SGPT) Alkaline Phosphatase 118 Ammonia 578 Total Creatine Kinase 147 Troponin I 0.02 Total Protein 5.4 Albumin 1.7 Thyroid Stimulating Hormone 6.210 3rd Gen Ethyl Alcohol Level LESS THAN 3 Blood Type A POSITIVE Antibody Screen NEGATIVE Blood Bank Comment Urine Color YELLOW Urine Turbidity HAZY Urine pH 5.5 Urine Specific [place] 1.021 Urine Protein 30 Urine Glucose (UA) NEG Urine Ketones NEG Urine Occult Blood MOD Urine Nitrite NEG Urine Bilirubin NEG Urine Urobilinogen 2.0 Urine Leukocyte Esterase LARGE Urine RBC 12 Urine WBC Urine WBC Clumps MOD Urine Squamous Epithelial <1 Cells Urine Transitional Epithelial <1 Cells Urine Bacteria FEW Urine Hyaline Casts 8 Urine Mucus FEW Urine Yeast (Budding) RARE Microscopic Urinalysis Comment CATH-CULTURE IND Urine Opiates Screen POS Urine Barbiturates Screen NEG Urine Amphetamines Screen NEG Urine Benzodiazepines Screen NEG Urine Cocaine Screen NEG Urine Cannabinoids Screen NEG Blood Gas Puncture Site RT BRACHIAL Blood Gas Patient Temperature 98.6 Blood Gas HCO3 8 Blood Gas Base Excess -23.4 Blood Gas Oxygen Saturation 72 Arterial Blood pH 6.76 Arterial Blood Partial 63 Pressure CO2 Arterial Blood Partial 75 Pressure O2 Arterial Blood Oxygen Content 9.6 Arterial Blood 0.0 Carboxyhemoglobin Arterial Blood Methemoglobin 0.6 Blood Gas Hemoglobin 9.4 Oxygen Delivery Device VENTILATOR Blood Gas Ventilator Setting 470/22/+5/1.0 Blood Gas Inspired Oxygen 100 Crossmatch Leukocyte-Reduced Red Blood Cells Test 12/18/16 12/18/16 12/18/16 12/18/16 15:24 15:44 15:45 15:47 Blood Bank Comment Lactic Acid Level 21.4 Blood Type A POSITIVE White Blood Count 30.2 Red Blood Count 2.67 Hemoglobin 9.5 Hematocrit 30.2 Mean Corpuscular Volume 113.1 Mean Corpuscular Hemoglobin 35.5 Mean Corpuscular Hemoglobin 31.4 Concent Red Cell Distribution Width 13.9 Platelet Count 192 Mean Platelet Volume 8.4 Neutrophils (%) (Auto) Lymphocytes (%) (Auto) Monocytes (%) (Auto) Eosinophils (%) (Auto) Basophils (%) (Auto) Neutrophils # (Auto) Lymphocytes # (Auto) Monocytes # (Auto) Eosinophils # (Auto) Basophils # (Auto) CBC Comment AUTO DIFF Differential Total Cells 100 Counted Neutrophils % (Manual) 64 Band Neutrophils % 11 Lymphocytes % 20 Monocytes % 3 Neutrophils # (Manual) 23.3 Metamyelocytes 1 Myelocytes 1 Nucleated Red Blood Cells 2 Differential Comment FINAL DIFF MANUAL Platelet Estimate NORMAL Platelet Morphology Comment NORMAL Sodium Level 140 Potassium Level 6.5 Chloride Level 101 Carbon Dioxide Level 9.9 Anion Gap 29 Blood Urea Nitrogen 95 Creatinine 4.87 Estimat Glomerular Filtration 12 Rate Random Glucose 74 Calcium Level 7.9 Magnesium Level 2.5 Total Bilirubin 1.2 Aspartate Amino Transf 496 (AST/SGOT) Alanine Aminotransferase 211 (ALT/SGPT) Alkaline Phosphatase 120 Total Protein 4.7 Albumin 1.8 Test 12/18/16 12/18/16 12/18/16 12/18/16 16:00 16:11 17:15 17:45 Blood Gas Puncture Site ART LINE ART LINE ART LINE Blood Gas Patient Temperature 98.6 98.6 98.6 Blood Gas HCO3 8 7 5 Blood Gas Base Excess -22.7 -23.9 -24.7 Blood Gas Oxygen Saturation 90 95 96 Arterial Blood pH 6.86 6.88 6.91 Arterial Blood Partial 46 37 28 Pressure CO2 Arterial Blood Partial 116 166 190 Pressure O2 Arterial Blood Oxygen Content 12.0 13.2 13.2 Arterial Blood 0.0 0.0 0.0 Carboxyhemoglobin Arterial Blood Methemoglobin 1.3 1.4 1.3 Blood Gas Hemoglobin 9.3 9.6 9.5 Oxygen Delivery Device VENTILATOR VENTILATOR PC/32/IP34/0.7/+10 Blood Gas Ventilator Setting AC/20/600/PEEP12 AC28/650/PEEP12 Blood Gas Inspired Oxygen 100 100 100 Peritoneal Fluid WBC 138 Peritoneal Fluid RBC 175 Peritoneal Fluid Neutrophils 60 Peritoneal Fluid Lymphocytes 25 Peritoneal Fluid Monocytes 2 Peritoneal Fluid Histiocytes 12 Hemoglobin 9.8 Hematocrit 31.4 Potassium Level 6.2 Iron Level 100 Total Iron Binding Capacity 108 Percent Iron Saturation 92.8 Ferritin 2895 Lactate Dehydrogenase 891 Total Protein 4.9 Tumor Marker Alpha Fetoprotein 3.5 Blood Gas Liter Flow Date/Time Procedure Status Source Growth 12/18/16 16:11 Gram Stain Received Fluid Peritoneal Fluid Pending 12/18/16 16:11 Body Fluid Culture Received Fluid Peritoneal Fluid Pending 12/18/16 13:15 Urine Culture Received Urine Catheterized Urine Pending 12/18/16 12:40 Aerobic Blood Culture Received Blood Peripheral Pending 12/18/16 12:40 Anaerobic Blood Culture Received Blood Peripheral Pending Physical Exam HEENT: Pupils round and reactive to light; normocephalic; atraumatic; no jaundice. Throat is clear. NECK: Neck is supple, no JVD, no lymphadenopathy. CHEST: Chest is clear to auscultation and percussion. CARDIAC: Regular rate and rhythm with no murmur gallop or rubs. ABDOMEN: Soft, nondistended, nontender; no hepatosplenomegaly; bowel sounds are present in all four quadrants. EXTREMITIES: No clubbing, cyanosis, or edema. SKIN: Normal; no rash; no jaundice. COREMAKING MACHINE SETTER: No focal deficits; alert and oriented times three. Assessment and Plan Plan ASSESSMENT: - Upper GIB, with known hx of liver cirrhosis. Pt was dx 2 weeks ago. denies any previous GIB. She did give him one aleve last night, but states he normally does not take this. He vomited large amount of maroon blood in ER according to nurse. HH 10.9/35.4 prior to this. PRBC has been ordered. 2 units FFP. Octreotide/Protonix has been ordered. - Anemia secondary to above. HH 10.9/35.4. PRBC ordered. Octreotide, Protonix Gtt. - Liver cirrhosis with elevated LFTs. Dx with cirrhosis 2 weeks ago. reports that he was never heavy drinker. States he drank 2 beers a night up until 1 week ago when he stopped completely. She denies any history of hepatitis. He has never seen GI. Recent CT Scan abdomen/pelvis (12/13/16) which revealed 1. Cirrhosis of the liver. Vague focal hepatic lesion in the left hepatic lobe and further characterization with MRI of the abdomen with and without contrast recommended. A few other scattered subcentimeter liver hypodensities are most likely cysts. 2. Moderate ascites. 3. Patent portal vein. 4. No splenomegaly. 5. Trace effusions and mild atelectasis of both lung bases. 6. Previous retroperitoneal lymph node dissection. No lymphadenopathy demonstrated currently. 7. Right hydrocele fluid. 8. Small hiatal hernia. ADDENDUM: There is cholelithiasis without evidence of cholecystitis or biliary obstruction. MELD Score 28. Will check liver workup. - Coagulopathy. PT 18.3, INR 1.6. 2 units FFP ordered. - Severe hepatic encephalopathy. Unresponsive, Ammonia 578. Will consider lactulose/xifaxan after endoscopy. - Ascites. S/P bedside paracentesis. Fluid sent/pending. He is septic with lactic acidosis at 22. Vanco/Zosyn. - Left hepatic lobe lesion. Recent CT with vague focal hepatic lesion in the left hepatic lobe and further characterization with MRI of the abdomen with and without contrast recommended. A few other scattered subcentimeter liver hypodensities are most likely cysts. Will get AFP level. Can't have MRI with ARF. - Sepsis/Leukocytosis/Lactic acidosis. BCx, Urine Cx pending. S/P bedside paracentesis. - Respiratory failure. Vent per [facility] - Acute renal failure with electrolyte abnormalities including K+ 6.8m, Creat 4.98. - EGD performed with variceal banding. Grade IV esophageal varices appear to be source of bleed PLAN: - OG tube discontinued - Octreotide Gtt run at 100mcg per hour for 12 hours then reduce to 50mcg per hour. - Protonix Gtt - Agree with PRBC - Give 2 units FFP - Monitor HH - AFP - Hepatitis profile - ANANT, AMA, ASMA - Ferritin, Iron Saturation - Ceruloplasmin, Alpha 1 Antitrypsin - Renal consulted - [facility] following - Will need Lactulose/Xifaxan after procedure Sergio Echevarria MD Dec 18, 2016 19:56
[2016-12-18] MEDS ORDERED: LEVOFLOXACIN 750 MG PREMIX INJ 150 ML IV SCH (20:00)
[2016-12-18] MEDS ORDERED: CHLORHEXIDINE 0.12% (ORAL KIT) 15 ML CUP MT SCH (20:00)
--- NOTE | 2016-12-18 20:28 | MB ---
cc: RIZWAN MONTEZ MD, SINOJ K. MD DATE OF CONSULTATION: 12/18/2016 REASON FOR CONSULTATION: Septic shock. REQUESTING PHYSICIAN Dr. Dye HISTORY OF PRESENT ILLNESS This is a 61-year-old white male who was brought to the emergency department with altered mental status. The patient is intubated on the ventilator and therefore information was obtained from his at bedside and the medical record. The patient's stated that she brought him to the emergency department because he was due to be going for a doctor's appointment early in the morning today and she noticed him bleeding from the mouth and, therefore, she drove him to the emergency department. The patient was recently diagnosed with cirrhosis of the liver. She noted that the reason why she brought him straight to the emergency department was because he was not responding and she was concerned about that. She reports that he was mostly tired in the past week but had no chills or fever. The patient was not responding to verbal stimuli and was emergently intubated and a large amount of coffee-ground emesis was noted to be in his mouth, and an OG tube was placed and 500 cc of coffee-ground emesis was obtained via the OG tube. The patient is now intubated and on the ventilator. He is on 30 micrograms of Levophed in addition to vasopressin and Stephane-Synephrine. He has no urine output and also has hepatic failure. Dialysis is currently in progress. His white count has climbed to 30,000. His temperature is 95.6. Chest x-ray shows left basilar consolidation. The patient was recently seen as an outpatient and he was diagnosed with cirrhosis of the liver on December 13, 2016. There was a lesion noted at the left lobe of the liver. He is currently unresponsive on the ventilator. PAST MEDICAL HISTORY Diabetes mellitus, hypertension. Surgical removal of one testicle. ALLERGIES NO KNOWN DRUG ALLERGIES. MEDICATIONS 1. Rifaximin. 2. Albumin. 3. Pantoprazole. 4. Vasopressin. 5. Stephane-Synephrine 6. Norepinephrine. 7. Thiamine. 8. Piperacillin/tazobactam 9. Levaquin 10. Vancomycin dose was given. SOCIAL HISTORY The patient is . No tobacco. The patient recently quit alcohol. No illicit drugs. FAMILY HISTORY Noncontributory. REVIEW OF SYSTEMS: Unobtainable. PHYSICAL EXAMINATION: The patient is an obese male who is on the ventilator and unresponsive. VITAL SIGNS: Temperature 95.4, BP 150/35, respiratory rate 20, heart rate 67. HEENT: Unable to assess. NECK: No adenopathy. LUNGS: Decreased breath sounds with rhonchi at both bases. HEART: Regular S1-S2, without audible murmurs. ABDOMEN: Bowel sounds diminished, distended, soft. No masses palpable. RECTAL: Not performed. EXTREMITIES: No clubbing, cyanosis, 1+ edema of the extremities. SKIN: No rash, warm and moist. NEUROLOGIC: Unable to assess. PSYCH: Unable to assess. LABORATORY DATA: WBC 30.2, platelet count 192, hemoglobin 9.5, 64% neutrophils, 11% bands, 20% lymphocytes. AST 496, ALT 211. Creatinine 4.87, estimated GFR 12. Sodium 140. PT 18.3, PTT 39.6. Urinalysis reveals moderate white blood cell clumps. Peritoneal fluid culture pending. Peritoneal fluid counts pending. IMPRESSION: 1. Septic shock. 2. Acute respiratory failure 3. Acute renal failure. 4. Hepatic failure in a patient with cirrhosis. 5. Aspiration pneumonia. RECOMMENDATIONS 1. Continue Levaquin 2. Continue Piperacillin/tazobactam 3. Monitor cultures. Given the extent of multiorgan system failure, the patient's outlook appears very poor. The cultures will be monitored and further recommendations will be made on follow up if necessary. Thank you for the consultation. Rizwan Montez MD FD/DEAN /6:41 PM /8:09 PM ROSS
--- NOTE | 2016-12-18 23:51 | HHI.CCPN ---
Subjective Remarks/Hospital Course Patient is a 61-year-old male with a recent diagnosis of liver cirrhosis made approximately 2 weeks ago, history of type 2 diabetes, hypertension, dyslipidemia who presented to the emergency department with altered mentation, severe shortness of breath and hypoxia. stated that he has been complaining of shortness of breath for more than a week. In the emergency department patient had oxygen saturation in 70s on 100% nonrebreather and was unresponsive but with eyes open, moving all extremities intermittently. Pt was emergently intubated. There was a large amount of coffee-ground emesis in mouth and airway, after NG tube placement additional 500cc of coffee ground emesis. Patient was profoundly hypotensive did not respond to 2 L IV fluid boluses. Patient was started on Levophed and 4 units of RBC and ordered to transfuse 2 units. Initial labs were grossly abnormal WBC count was 27.7 with markedly left shift, INR 1.6, lactic acid was highly elevated at 22. His Ammonia was 578, patient was also in acute renal failure with potassium of K6.8. Received sodium bicarb, calcium gluconate, insulin/dextrose and albuterol in the ED. ABG showed severe metabolic acidosis with pH 6.76. HCO3 8. Sat 72%, BE -23. Pt empirically given vancomycin and zosyn in ED. CXR showed left basilar consolidation. Patient continued to get profoundly hypotensive and was emergently transferred to ICU. I was unable to get any imaging studies done including CT of the head chest and abdomen pelvis due to severe hemodynamic instability. Patient also had been placed on IV Protonix infusion and Sandostatin infusion. He had an abnormal CT scan abdomen and pelvis on 12/13/16 which revealed Cirrhosis of the liver, focal hepatic lesion in the left hepatic lobe, moderate ascites and cholelithiasis without evidence of cholecystitis or biliary obstruction. At that time patient refused to get admitted and went home, outpatient order for paracentesis was given I evaluated the patient in the ICU. He was profoundly hypotensive on Levophed 20 mcg/m. Stephane-Synephrine was started, I will also order vasopressin. Blood and urine cultures and sputum cultures ordered. Patient received vancomycin in the ED Zosyn emergently ordered and I called pharmacy personally. I proceeded with a central line placement at the left subclavian region and a right femoral central line. Patient received additional 2 L normal saline boluses and multiple bicarbonate infusions. With maximum hyperventilation I was unable to correct his acidosis. I discussed with Dr. Mantilla and got a stat nephrology consult, patient will need emergency dialysis to correct his acidemia and hyperkalemia. I also placed a right IJ Vas-Cath. I also performed a large volume paracentesis to assist with ventilation-6.5 L of slightly cloudy yellow fluid was removed. 2330 hrs: Patient has received DISPENSING OPTICIAN and continues on bicarb drip. Labs indicate ongoing refractory metabolic acidosis and septic shock. Hepatic failure is evident. Despite aggressive attempts to correct electrolyte abnormalities and reverse acid/base problems he has worsening hemodynamic instability, now unresponsive to three high dose vasopressors. This has progressed to MODS and the chance of survival approaches zero. His and both parents are at the bedside. He experienced one episode of sinus arrest with spontaneous recovery. The has requested DNR status at this point. I concur with her decision, knowing that his multiple organ failure is now refractory. Objective Vital Signs Date Time Temp Pulse Resp B/P Pulse Ox O2 Delivery O2 Flow Rate FiO2 12/18/16 22:00 68 12/18/16 20:00 100 12/18/16 20:00 34 112/32 88 112/32 12/18/16 17:00 95.8 12/18/16 15:00 Ventilator 12/18/16 12:09 15 Result Diagram: 12/18/16 1715 12/18/16 1715 Other Results Laboratory Tests Test 12/18/16 12/18/16 12/18/16 12/18/16 13:49 16:00 17:15 17:45 Blood Gas Puncture Site RT BRACHIAL ART LINE ART LINE ART LINE Blood Gas Patient Temperature 98.6 98.6 98.6 98.6 Blood Gas HCO3 8 mmol/L 8 mmol/L 7 mmol/L 5 mmol/L (22-26) (22-26) (22-26) (22-26) Blood Gas Base Excess -23.4 mmol/L -22.7 mmol/L -23.9 mmol/L -24.7 mmol/L (-2-2) (-2-2) (-2-2) (-2-2) Blood Gas Oxygen Saturation 72 % (90-100) 90 % (90-100) 95 % (90-100) 96 % (90- 100) Arterial Blood pH 6.76 6.86 6.88 6.91 (7.380-7.420) (7.380-7.420) (7.380-7.420) (7.380-7.420) Arterial Blood Partial 63 mmHg (38-42) 46 mmHg (38-42) 37 mmHg (38-42) 28 mmHg ( 38-42) Pressure CO2 Arterial Blood Partial 75 mmHG 116 mmHg 166 mmHg 190 mmHg Pressure O2 (61-120) (61-120) (61-120) (61-120) Arterial Blood Oxygen Content 9.6 Vol % 12.0 Vol % 13.2 Vol % 13.2 Vol % (12.0-20.0) (12.0-20.0) (12.0-20.0) (12.0-20.0) Arterial Blood 0.0 % (0-4) 0.0 % (0-4) 0.0 % (0-4) 0.0 % (0-4) Carboxyhemoglobin Arterial Blood Methemoglobin 0.6 % (0-2) 1.3 % (0-2) 1.4 % (0-2) 1.3 % (0-2) Blood Gas Hemoglobin 9.4 G/DL 9.3 G/DL 9.6 G/DL 9.5 G/DL (12.0-16.0) (12.0-16.0) (12.0-16.0) (12.0-16.0) Oxygen Delivery Device VENTILATOR VENTILATOR VENTILATOR PC/32/IP34/0.7/+10 Blood Gas Ventilator Setting 470/22/+5/1.0 AC/20/600/PEEP12 AC28/650/PEEP12 Blood Gas Inspired Oxygen 100 % 100 % 100 % 100 % Blood Gas Liter Flow L/M Imaging Chest x-ray shows left lower lobe infiltrate Objective Remarks GENERAL: Acutely critically ill, in profound shock SKIN: Cool, poorly perfused. HEAD: Atraumatic. Normocephalic. Generally edematous. EYES: Pupils equal and round, 6 mm sluggishly reactive. ENT: Orotracheally intubated. Mucous membranes dry. Lips blue. NECK: Trachea midline. Orally intubated. CARDIOVASCULAR: Bradycardia at 27, hypotensive in 40s now on 3 pressors. RESPIRATORY: Breath sounds equal bilaterally, diminished at the bases. Diffuse crackles GASTROINTESTINAL: Abdomen is distended, soft. No bowel sounds. MUSCULOSKELETAL: 1+ lower extremity edema, pitting. Poorly perfused. NEUROLOGICAL: Intubated, unresponsive. No withdrawal to painful stimuli. Pupils are 6 mm. A/P Assessment and Plan NEURO: Acute hepatic encephalopathy Severe hyperammonemia -Patient at this time is not needing any sedation for ventilator synchrony -Started on lactulose and rifaximin -Monitor serial ammonia levels -CT of the head once patient is slightly more stable RESP: Acute hypoxemic respiratory failure Left lower lobe pneumonia Severe metabolic acidosis - Intubated in the emergency department for severe hypoxemic respiratory failure - ACV RR 26, TV 650 PEEP 12 FiO2 100% - DuoNeb every 4 hours and when necessary - Ventilator bundle - CT of the chest once clinically more stable CV: Septic and hypovolemic shock Severe lactic acidosis - Levophed and vasopressin to keep map above 60-65 - Normal saline IV fluid 4 L boluses followed by bicarbonate infusion at 150 mL per hour - Check bedside echo, check cardiac enzymes - IV albumin 50 g now and 25 g every 8 hours GI: Upper GI bleed Liver cirrhosis Probable left liver lobe mass Ascites - Patient is receiving 2 units of PRBC and 1 unit of FFP - GI consulted for endoscopy EGD today - Currently receiving Sandostatin and Protonix infusions - Check AFP, further imaging studies per GI - Bedside US shows large ascites-plan for paracentesis /Endo: Acute kidney failure Hyperkalemia Type 2 diabetes - Monitor renal function closely. Noble catheter in place with no urine output - Hyperkalemia medically treated with IV calcium gluconate, multiple amps of bicarbonate, insulin IV followed by D50, DuoNeb and Kayexalate also ordered - Repeat potassium is 6.5 and patient is not making any urine - Dr. Mantilla consulted for emergency hemodialysis - NovoLog sliding scale ID: Septic shock LL pneumonia Probable SBP - Source of sepsis remains unclear go pneumonia and spontaneous pectoral peritonitis seems most likely etiology - IV vancomycin and Zosyn pharmacy to dose adjust - Follow-up on blood urine and sputum cultures and ascitic fluid cultures. - CT chest abdomen pelvis once clinically more stable HEME: Anemia/GI bleed Leukocytosis - Monitor CBC, CMP, coags - Upper GI bleed with hypotension transfuse 2 units PRBC empirically - 1 unit FFP PROPH: - Bilateral lower extremity SCDs. IV Protonix gtt. chemical DVT prophylaxis is contraindicated at this time LINES: - Left subclavian central line and right femoral arterial line placed Critical Care 45 mins Overall impression: The patient remains extremely critically ill due to multiorgan failure and has continued to deteriorate. Now DNR status per and parents. Randolph Liz MD Dec 18, 2016 23:50
--- NOTE | 2016-12-18 23:53 | DEATH SUM ---
Summary Demographics Date Pronounced : Dec 18, 2016 Time Of : 23:47 Preliminary Cause of : Multi Organ Failure Randolph Liz MD Dec 18, 2016 23:53
[2016-12-19] MEDS ORDERED: CHLORHEXIDINE GLUCONATE 2 % 1 PACK (2 CLOTHS) TOP SCH (04:00)
[2016-12-19] MEDS ORDERED: HYDROCORTISONE SOD SUCCINATE 100 MG VIAL IV SCH (06:00)
--- NOTE | 2016-12-19 09:46 | HHI.DS ---
Summary Note Date of : Dec 18, 2016 Time Of : 7 Admission Date Dec 18, 2016 at 14:14 Admitting Diagnosis GI bleed, hepatic encephalopathy, septic shock Diagnosis at Time of : (1) Septic shock ICD Code: A41.9 Diagnosis: Principal (2) Sepsis with multi-organ dysfunction ICD Code: A41.9 Diagnosis: Principal (3) Acute respiratory failure ICD Code: J96.00 Diagnosis: Principal (4) Acute hepatic encephalopathy ICD Code: K72.00 Diagnosis: Principal (5) Liver failure, acute ICD Code: K72.00 Diagnosis: Principal (6) Acute kidney failure ICD Code: N17.9 Diagnosis: Principal (7) Hyperkalemia ICD Code: E87.5 Diagnosis: Principal (8) Hyperammonemia ICD Code: E72.20 Diagnosis: Principal (9) UGIB (upper gastrointestinal bleed) ICD Code: K92.2 Diagnosis: Principal (10) Metabolic acidemia ICD Code: E87.2 Diagnosis: Principal (11) Lactic acidemia ICD Code: E87.2 Diagnosis: Principal (12) Ascites ICD Code: R18.8 Diagnosis: Principal (13) Cirrhosis of liver ICD Code: K74.60 Diagnosis: Secondary Procedures Intubation in the ER 12/18/16 Central line placement, hemodialysis catheter placement, femoral arterial line placement, and paracentesis on 12/18/16 in ICU EGD 12/18/16 Brief History Patient is a 61-year-old male with a recent diagnosis of liver cirrhosis made approximately 2 weeks ago, history of type 2 diabetes, hypertension, dyslipidemia who presented to the emergency department with altered mentation, severe shortness of breath and hypoxia. stated that he has been complaining of shortness of breath for more than a week. In the emergency department patient had oxygen saturation in 70s on 100% nonrebreather and was unresponsive but with eyes open, moving all extremities intermittently. Pt was emergently intubated. There was a large amount of coffee-ground emesis in mouth and airway, after NG tube placement additional 500cc of coffee ground emesis. Patient was profoundly hypotensive did not respond to 2 L IV fluid boluses. Patient was started on Levophed and 4 units of RBC and ordered to transfuse 2 units. Initial labs were grossly abnormal WBC count was 27.7 with markedly left shift, INR 1.6, lactic acid was highly elevated at 22. His Ammonia was 578, patient was also in acute renal failure with potassium of K6.8. Received sodium bicarb, calcium gluconate, insulin/dextrose and albuterol in the ED. ABG showed severe metabolic acidosis with pH 6.76. HCO3 8. Sat 72%, BE -23. Pt empirically given vancomycin and zosyn in ED. CXR showed left basilar consolidation. Patient continued to get profoundly hypotensive and was emergently transferred to ICU. I was unable to get any imaging studies done including CT of the head chest and abdomen pelvis due to severe hemodynamic instability. Patient also had been placed on IV Protonix infusion and Sandostatin infusion. He had an abnormal CT scan abdomen and pelvis on 12/13/16 which revealed Cirrhosis of the liver, focal hepatic lesion in the left hepatic lobe, moderate ascites and cholelithiasis without evidence of cholecystitis or biliary obstruction. At that time patient refused to get admitted and went home, outpatient order for paracentesis was given. I evaluated the patient in the ICU. He was profoundly hypotensive on Levophed 20 mcg/m. Stephane-Synephrine was started, I will also order vasopressin. Blood and urine cultures and sputum cultures ordered. Patient received vancomycin in the ED Zosyn emergently ordered and I called pharmacy personally. I proceeded with a central line placement at the left subclavian region and a right femoral central line. Patient received additional 2 L normal saline boluses and multiple bicarbonate infusions. With maximum hyperventilation I was unable to correct his acidosis. I discussed with Dr. Mantilla and got a stat nephrology consult, patient will need emergency dialysis to correct his acidemia and hyperkalemia. I also placed a right IJ Vas-Cath. I also performed a large volume paracentesis to assist with ventilation-6.5 L of slightly cloudy yellow fluid was removed. Dr. Echevarria from GI performed an emergency EGD-there are multiple grade 4 varices with evidence of recent bleed but no active bleeding, banding performed CBC/BMP: 12/18/16 1715 12/18/16 1715 Significant Findings Laboratory Tests Test 12/18/16 12/18/16 12/18/16 12/18/16 12:35 13:15 13:49 15:44 White Blood Count 27.7 TH/MM3 (4.0-11.0) Red Blood Count 3.07 MIL/MM3 (4.50-5.90) Hemoglobin 10.9 GM/DL (13.0-17.0) Hematocrit 35.4 % (39.0-51.0) Mean Corpuscular Volume 115.3 FL (80.0-100.0) Mean Corpuscular Hemoglobin 35.5 PG (27.0-34.0) Mean Corpuscular Hemoglobin 30.8 % Concent (32.0-36.0) Neutrophils (%) (Auto) 71.8 % (16.0-70.0) Neutrophils # (Auto) 19.9 TH/MM3 (1.8-7.7) Lymphocytes # (Auto) 5.7 TH/MM3 (1.0-4.8) Monocytes # (Auto) 1.8 TH/MM3 (0-0.9) Band Neutrophils % 12 % (0-6) Neutrophils # (Manual) 23.3 TH/MM3 (1.8-7.7) Metamyelocytes 3 % (0-1) Myelocytes 2 % (0-0) Promyelocytes 1 % (0-0) Prothrombin Time 18.3 SEC (9.8-11.6) Activated Partial 39.6 SEC Thromboplast Time (24.3-30.1) Potassium Level 6.8 MEQ/L (3.5-5.1) Carbon Dioxide Level 7.7 MEQ/L (21.0-32.0) Anion Gap 30 MEQ/L (5-15) Blood Urea Nitrogen 91 MG/DL (7-18) Creatinine 4.98 MG/DL (0.60-1.30) Estimat Glomerular Filtration 12 ML/MIN (>89) Rate Lactic Acid Level 22.0 mmol/L 21.4 mmol/L (0.4-2.0) (0.4-2.0) Calcium Level 8.2 MG/DL (8.5-10.1) Total Bilirubin 1.2 MG/DL (0.2-1.0) Aspartate Amino Transf 153 U/L (15-37) (AST/SGOT) Alanine Aminotransferase 84 U/L (12-78) (ALT/SGPT) Alkaline Phosphatase 118 U/L (45-117) Ammonia 578 MCMOL/L (11-32) Total Protein 5.4 GM/DL (6.4-8.2) Albumin 1.7 GM/DL (3.4-5.0) Thyroid Stimulating Hormone 6.210 uIU/ML 3rd Gen (0.358-3.740) Urine Turbidity HAZY (CLEAR) Urine Protein 30 mg/dL (NEG-TRACE) Urine Occult Blood MOD (NEG) Urine Leukocyte Esterase LARGE (NEG) Urine RBC 12 /hpf (0-3) Urine WBC Clumps MOD (NONE) Urine Bacteria FEW /hpf (NONE) Urine Mucus FEW /lpf (OCC) Urine Yeast (Budding) RARE (NONE) Urine Opiates Screen POS (NEG) Blood Gas HCO3 8 mmol/L (22-26) Blood Gas Base Excess -23.4 mmol/L (-2-2) Blood Gas Oxygen Saturation 72 % (90-100) Arterial Blood pH 6.76 (7.380-7.420) Arterial Blood Partial 63 mmHg (38-42) Pressure CO2 Arterial Blood Oxygen Content 9.6 Vol % (12.0-20.0) Blood Gas Hemoglobin 9.4 G/DL (12.0-16.0) Test 12/18/16 12/18/16 12/18/16 12/18/16 15:47 16:00 16:11 17:15 White Blood Count 30.2 TH/MM3 (4.0-11.0) Red Blood Count 2.67 MIL/MM3 (4.50-5.90) Hemoglobin 9.5 GM/DL 9.8 GM/DL (13.0-17.0) (13.0-17.0) Hematocrit 30.2 % 31.4 % (39.0-51.0) (39.0-51.0) Mean Corpuscular Volume 113.1 FL (80.0-100.0) Mean Corpuscular Hemoglobin 35.5 PG (27.0-34.0) Mean Corpuscular Hemoglobin 31.4 % Concent (32.0-36.0) Band Neutrophils % 11 % (0-6) Neutrophils # (Manual) 23.3 TH/MM3 (1.8-7.7) Myelocytes 1 % (0-0) Nucleated Red Blood Cells 2 /100 WBC (0-0) Potassium Level 6.5 MEQ/L 6.2 MEQ/L (3.5-5.1) (3.5-5.1) Carbon Dioxide Level 9.9 MEQ/L (21.0-32.0) Anion Gap 29 MEQ/L (5-15) Blood Urea Nitrogen 95 MG/DL (7-18) Creatinine 4.87 MG/DL (0.60-1.30) Estimat Glomerular Filtration 12 ML/MIN (>89) Rate Calcium Level 7.9 MG/DL (8.5-10.1) Total Bilirubin 1.2 MG/DL (0.2-1.0) Aspartate Amino Transf 496 U/L (15-37) (AST/SGOT) Alanine Aminotransferase 211 U/L (12-78) (ALT/SGPT) Alkaline Phosphatase 120 U/L (45-117) Total Protein 4.7 GM/DL 4.9 GM/DL (6.4-8.2) (6.4-8.2) Albumin 1.8 GM/DL (3.4-5.0) Blood Gas HCO3 8 mmol/L 7 mmol/L (22-26) (22-26) Blood Gas Base Excess -22.7 mmol/L -23.9 mmol/L (-2-2) (-2-2) Arterial Blood pH 6.86 6.88 (7.380-7.420) (7.380-7.420) Arterial Blood Partial 46 mmHg (38-42) 37 mmHg (38-42) Pressure CO2 Blood Gas Hemoglobin 9.3 G/DL 9.6 G/DL (12.0-16.0) (12.0-16.0) Peritoneal Fluid WBC 138 /MM3 (0-10) Peritoneal Fluid RBC 175 /MM3 (0-0) Arterial Blood Partial 166 mmHg Pressure O2 (61-120) Total Iron Binding Capacity 108 MCG/DL (250-450) Percent Iron Saturation 92.8 % (20-50) Ferritin 2895 NG/ML (26-388) Lactate Dehydrogenase 891 U/L (87-241) Test 12/18/16 17:45 Blood Gas HCO3 5 mmol/L (22-26) Blood Gas Base Excess -24.7 mmol/L (-2-2) Arterial Blood pH 6.91 (7.380-7.420) Arterial Blood Partial 28 mmHg (38-42) Pressure CO2 Arterial Blood Partial 190 mmHg Pressure O2 (61-120) Blood Gas Hemoglobin 9.5 G/DL (12.0-16.0) Imaging Chest x-ray shows left lower lobe infiltrate Hospital Course 61-year-old male with a recent diagnosis of liver cirrhosis admitted to ICU with acute hypoxemic respiratory failure, septic shock, UGIB, severe lactic acidosis, liver failure and renal failure with hyperkalemia. Patient was profoundly hypotensive did not respond to 2 L IV fluid boluses. Patient was started on Levophed and 4 units of RBC and ordered to transfuse 2 units. WBC count was 27.7 with marked left shift, INR 1.6, lactic acid 22. His Ammonia was 578, patient was also in acute renal failure with potassium of K6.8. Received sodium bicarb, calcium gluconate, insulin/dextrose and albuterol in the ED. ABG showed severe metabolic acidosis with pH 6.76. HCO3 8. Sat 72%, BE -23. Pt empirically given vancomycin and zosyn in ED. CXR showed left basilar consolidation. Patient continued to get profoundly hypotensive and was emergently transferred to ICU. Unable to get any imaging studies done including CT of the head chest and abdomen pelvis due to severe hemodynamic instability. Patient placed on IV Protonix infusion and Sandostatin infusion. CT scan abdomen and pelvis on 12/13/16 had revealed Cirrhosis of the liver, focal hepatic lesion in the left hepatic lobe, moderate ascites and cholelithiasis without evidence of cholecystitis or biliary obstruction. At that time patient refused to get admitted and went home, outpatient order for paracentesis was given. In ICU he was profoundly hypotensive on Levophed 20 mcg/m. Stephane- Synephrine was started, and vasopressin was added. Blood and urine cultures and sputum cultures ordered. Patient received vancomycin in the ED Zosyn emergently ordered, these abx were continue renally dosed and Levaquin was added for atypical coverage. I proceeded with a central line placement at the left subclavian region and a right femoral arterial line. Patient received additional 2 L normal saline boluses and multiple bicarbonate infusions. With maximum hyperventilation I was unable to correct his acidosis. I discussed with Dr. Mantilla and got a stat nephrology consult, patient will need emergency dialysis to correct his acidemia and hyperkalemia. I also placed a right IJ Vas -Cath. Large volume paracentesis to assist with ventilation-6.5 L of slightly cloudy yellow fluid was removed. Dr. Echevarria from GI performed an emergency EGD -there are multiple grade 4 varices with evidence of recent bleed but no active bleeding, banding performed. 2330 hrs: Patient has received [employer] and continues on bicarb drip. Labs indicate ongoing refractory metabolic acidosis and septic shock. Hepatic failure is evident. Despite aggressive attempts to correct electrolyte abnormalities and reverse acid/base problems he has worsening hemodynamic instability, now unresponsive to three high dose vasopressors. He has progressed to MODS and the chance of survival approaches zero. His and both parents are at the bedside. He experienced one episode of sinus arrest with spontaneous recovery. The has requested DNR status at this point. Dr. Liz concurred with her decision. patient at 2347 on 12/18/16 Lev Dye MD Dec 19, 2016 09:46 evident. Despite aggressive attempts to correct electrolyte abnormalities and reverse acid/base problems he has worsening hemodynamic instability, now unresponsive to three high dose vasopressors. This has progressed to MODS and the chance of survival approaches zero. His and both parents are at the bedside. He experienced one episode of sinus arrest with spontaneous recovery. The has requested DNR status at this point. I concur with her decision, knowing that his multiple organ failure is now refractory. Lev Dye MD Dec 19, 2016 09:46
[2016-12-19 14:05] LABS: ANA SCREEN NEG (NEG)
--- NOTE | 2016-12-19 14:36 | MR ---
cc: SERGIO ECHEVARRIA,LEV DATE: 12/18/2016 PROCEDURE PERFORMED Esophagogastroduodenoscopy with esophageal variceal banding. INDICATION Massive upper GI bleed. REFERRING PHYSICIAN Dr. Lev Dye. PROCEDURE After informed consent was obtained, the patient was placed in the supine position in the Intensive Care Unit. He was on the ventilator and endotracheal intubation. He was administered monitored anesthesia care by anesthesia. After adequate sedation was achieved the Pentex video gastroscope was inserted in the oropharynx and advanced down through the esophagus into the stomach. The stomach was full of dark blood and clots. Much of the material was suctioned out as well as possible. The scope was then advanced down along the lesser curvature reaching the pylorus. It was then advanced through the pylorus into the descending duodenum, it was withdrawn and the duodenum was washed with the construction stonemason. It was suctioned clear. The scope was then withdrawn back into the gastric antrum and that was washed clear and the scope was retroflexed and fundus and cardia was visualized, although under liquid dark blood with clots. This could not be aspirated. The patient was turned into partial reverse Trendelenburg and the GE junction could be visualized well. There were large grade four varices with oozing of blood at the distal esophagus. A decision was made to perform variceal banding. The scope was withdrawn and the herpetology teacher was applied. The scope was inserted back into the oropharynx and down into the esophagus. Two bands were applied. The scope was withdrawn and a second herpetology teacher was attached to the scope. The scope was then reinserted and three additional bands were applied. These seemed to have an excellent effect at reducing the size of the varices and there was no apparent complication. The scope was then withdrawn and the procedure was terminated. He tolerated the procedure well and remained in critical condition in the intensive care unit. FINDINGS 1. The esophagus had grade four varices and five total bands were applied with apparent good effect at the distal esophagus. 2. In the stomach, the upper stomach and fundus could not be seen due to dark blood and clots, which could not be aspirated. 3. The gastric antrum was well-seen and no ulcerations were identified. 4. The duodenum was well-seen and no ulcerations were identified. 5. Gastric varices cannot be ruled out but no gastric varices were seen. IMPRESSION 1. Massive upper GI bleed from esophageal varices. 2. Five bands were applied with apparent good effect. PLAN 1. The orogastric tube has been discontinued. 2. The octreotide drip will be run at 100 mcg per hour for 12 hours and then reduced to 50 mcg per hour. 3. The patient will remain on a Protonix drip. Sergio Echevarria MD [facility] /8:05 PM /2:37 PM
[2016-12-19 15:42] LABS: CRITICAL VALUE YES
[2016-12-20 14:51] LABS: BODY FLUID LDH 65 U/L (()); BODY FLUID LDH SOURCE PERITONEAL (())
[2016-12-21 15:52] LABS: MITOCHONDRIAL ABS LESS THAN 20.0 U (())
[2016-12-24 07:12] LABS: CRITICAL VALUE YES
== END 2016-12-18 23:47 | disposition expired | DRG 871 ==
LOC: NEPE 11:52 → NEDA 14:14 → HIMN 15:00
PROVIDERS: ADMIT Internal Medicine; ATTEND Internal Medicine
PROC: 05H633Z Insertion of Infusion Device into Left Subclavian Vein, Percutaneous Approach (ICD-10-PCS; 2016-12-18)
PROC: 0W9G30Z Drainage of Peritoneal Cavity with Drainage Device, Percutaneous Approach (ICD-10-PCS; 2016-12-18)
PROC: 05HM33Z Insertion of Infusion Device into Right Internal Jugular Vein, Percutaneous Approach (ICD-10-PCS; 2016-12-18)
PROC: B543ZZA Ultrasonography of Right Jugular Veins, Guidance (ICD-10-PCS; 2016-12-18)
PROC: 06L34CZ Occlusion of Esophageal Vein with Extraluminal Device, Percutaneous Endoscopic Approach (ICD-10-PCS; 2016-12-18)
PROC: 0BH17EZ Insertion of Endotracheal Airway into Trachea, Via Natural or Artificial Opening (ICD-10-PCS; 2016-12-18)
PROC: 5A1935Z Respiratory Ventilation, Less than 24 Consecutive Hours (ICD-10-PCS; 2016-12-18)
PROC: 30253K1 (ICD-10-PCS; 2016-12-18)
PROC: 30253N1 (ICD-10-PCS; 2016-12-18)
PROC: 04HY32Z Insertion of Monitoring Device into Lower Artery, Percutaneous Approach (ICD-10-PCS; principal; 2016-12-18 16:35)
DX: A41.9 Sepsis, unspecified organism (principal); R65.21 Severe sepsis with septic shock; J96.01 Acute respiratory failure with hypoxia; K72.01 Acute and subacute hepatic failure with coma; I85.01 Esophageal varices with bleeding; D68.9 Coagulation defect, unspecified; K65.9 Peritonitis, unspecified; J69.0 Pneumonitis due to inhalation of food and vomit; R18.8 Other ascites; N17.9 Acute kidney failure, unspecified; E87.2 Acidosis; D64.9 Anemia, unspecified; E11.9 Type 2 diabetes mellitus without complications; E78.1 Pure hyperglyceridemia; E78.5 Hyperlipidemia, unspecified; E87.5 Hyperkalemia; I10 Essential (primary) hypertension; K44.9 Diaphragmatic hernia without obstruction or gangrene; K74.60 Unspecified cirrhosis of liver; K80.20 Calculus of gallbladder without cholecystitis without obstruction; N43.3 Hydrocele, unspecified; Z66 Do not resuscitate; Z85.47 Personal history of malignant neoplasm of testis
CPT/HCPCS: 36430; 36556; 36600; 43753; 49082; 51702; 71010; 76937; 80053; 80074; 80307; 81001; 82042; 82103; 82105; 82140; 82150; 82390; 82550; 82728; 82805; 82945; 83520; 83540; 83550; 83605; 83615; 83735; 84132; 84155; 84157; 84443; 84484; 85007; 85014; 85018; 85027; 85610; 85730; 86038; 86256; 86850; 86900; 86901; 86920; 86927; 87040; 87070; 87086; 87205; 88112; 89051; 90935; 93005; 93306; 94002; 94664; 96365; 96374; 96375; J1956; J2370; J3370; J7030; J7050; J7060; P9016; P9017; P9047